=== PATIENT | female | born 1970 | race Caucasian/White ===

== ENCOUNTER 2024-03-28 09:50 | Day surgery (SDC) | payer MEDICARE, SELFPAY ==
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
--- OUTSIDE RECORDS SUMMARY | 2024-03-28 09:57 | XMS_ITS | Encounter Summary ---
Author Name Unknown Organization [place] Address [address] [facility] [place] [address] Care Team Providers Care Slubber Runner Name Role Phone Klaudia Ludwig MD Unavailable [phone] Alex Sneed MD Unavailable [facility] Primary Care Provi kayy Dave Fermin RN Unavailable Keith Bond MD Primary Care Provider [phone] Mague Olsen PA-C Unavailable [phone] Mague Olsen PA-C Unavailable [phone] Encounter Details Date Type Department Care Team (Late st Contact Info) Description 09/07/2017 [facility] [address] [place] [address] Zion Love MD Social History Tobacco Use Types Packs/Day Years Used Date Smoking Tobacco: Never Smokeless Tobacco: Never Alcohol Use Standard Drinks/Week Comments No 0 (1 standard drink = 0.6 oz pur e alcohol) Sex and Gender Information Value Date Recorded Sex Assigned at Not on file Gender Identity Not on file Sexual Orientation Not on file documented as of this encounter Plan of Treatment Not on file documented as of this encounter Visit Diagnoses Not on filedocumented in this encounter Care Teams Slubber Runner Relationship Specialty Start Date End Date [address] [address] PCP - General 05/21/16 09/22/17 Keith Bnod MD [facility] [address] [place] [address] PCP - General Family Practice 09/23/17 Mague Olsen PA-C [facility] [address] [place] [address] PCP - Assigned PCP 06/13/18 01/25/19 Klaudia Ludwig MD [address] [place] [address] Referring Physician Nephrology 06/01/15 Alex Sneed MD [address] [facility] [address] [place] [address] INTERNAL MEDICINE - ENDOCRINOLOGY, DIABETES & METABOLISM 07/25/15 Dave Fermin, RN Nurse Coordinator Nephrology 02/13/17 10/22/17 [address]ague [address]lsen PA-C [facility] [address] [place] [address] Assigned PCP 06/13/18 02/26/19 documented as of this encounter
--- OUTSIDE RECORDS SUMMARY | 2024-03-28 09:57 | XMS_ITS | Encounter Summary ---
Author Name Unknown Organization [place] Address [address] [place] [address] Care Team Providers Care Seafood Fisherman Name Role Phone Klaudia Ludwig MD Unavailable [phone] Alex Sneed MD Unavailable [facility] Primary Care Provi kayy Dave Fermin RN Unavailable Keith Bond MD Primary Care Provider [phone] Mague Olsen PA-C Unavailable [phone] Mague Olsen PA-C Unavailable [phone] Encounter Details Date Type Department Care Team (Late st Contact Info) Description 06/01/2017 [facility] Specialty [facility] 3rd Floor Clinic [address] [place] [address] Gayatri Mondragon Social History Tobacco Use Types Packs/Day Years [...] on filedocumented in this encounter Care Teams Seafood Fisherman Relationship Specialty Start Date End Date [address] [address] PCP - General 05/21/16 09/22/17 Keith Bond MD [facility] [address] [place] [address] PCP - General Family Practice 09/23/17 Mague Olsen PA-C [facility] [address] [place] [address] PCP - Assigned PCP 06/13/18 01/25/19 Klaudia Ludwig MD [address] [place], [place] [address] Referring Physician Nephrology 06/01/15 Alex Sneed MD [address] [facility] [address] [place], [place] [address] INTERNAL MEDICINE - ENDOCRINOLOGY, DIABETES & METABOLISM 07/25/15 Dave Fermin, RN Nurse Coordinator Nephrology 02/13/17 10/22/17 Mague Olsen PA-C [facility] [address] [place] [address] Assigned PCP 06/13/18 02/26/19 documented as of this encounter
--- OUTSIDE RECORDS SUMMARY | 2024-03-28 09:57 | XMS_ITS | Encounter Summary ---
Author Name Unknown Organization [place] Address [address] [facility] [place] [address] Care Team Providers Care Gas Refrigerator Servicer Name Role Phone Klaudia Ludwig MD Unavailable + [phone] Alex Sneed MD Unavailable [facility] Primary Care Provi kayy Dave Fermin RN Unavailable Keith Bond MD Primary Care Provider [phone] Mague Olsen PA-C Unavailable [phone] Mague Olsen PA-C Unavailable [phone] Encounter Details Date Type Department Care Team (Late st Contact Info) Description 08/12/2017 [facility] [address] [address] Klaudia Ludwig MD [address] [place] [address] [address] [place], [place] [id number] Social History Tobacco Use Types Packs/Day Years [...] on filedocumented in this encounter Care Teams Gas Refrigerator Servicer Relationship Specialty Start Date End Date Clinic, [address] [address] PCP - General 05/21/16 09/22/17 Keith Bond MD [facility] [address] [place] [address] PCP - General Family Practice 09/23/17 Mague Olsen PA-C [facility] [address] [place] [address] PCP - Assigned PCP 06/13/18 01/25/19 Klaudia Ludwig MD [address] [facility] [address] [place] [address] Referring Physician Nephrology 06/01/15 Alex Sneed MD [address] [facility] [address] [place] [address] INTERNAL MEDICINE - ENDOCRINOLOGY, DIABETES & METABOLISM 07/25/15 Dave Fermin, RN Nurse Coordinator Nephrology 02/13/17 10/22/17 Mague Olsen PA-C [facility] [address] [place] [address] Assigned PCP 06/13/18 02/26/19 documented as of this encounter
--- OUTSIDE RECORDS SUMMARY | 2024-03-28 09:57 | XMS_ITS | Encounter Summary ---
Author Name Unknown Organization [place] Address [address] [facility] [address] Care Team Providers Care Automotive General Manager Name Role Phone Klaudia Ludwig MD Unavailable + [phone] Alex Sneed MD Unavailable [phone] Keith Bond MD Primary Care Provider [phone] Encounter Details Date Type Department Care Team (Late st Contact Info) Description 09/16/2023 [facility] Advice [facility] Interventional Radiology [address] [place] [address] [place], ADALGISA Social History Tobacco Use Types Packs/Day Years [...] on filedocumented in this encounter Care Teams Automotive General Manager Relationship Specialty Start Date End Date Keith Bond MD [address] [address] PCP - General Family Practice 09/23/17 Klaudia Ludwig MD [address] [facility] [address] [place] [address] Referring Physician Nephrology 06/01/15 Alex Sneed MD [address] [facility] [address] [place] [address] INTERNAL MEDICINE - ENDOCRINOLOGY, DIABETES & METABOLISM 07/25/15 documented as of this encounter
--- OUTSIDE RECORDS SUMMARY | 2024-03-28 09:57 | XMS_ITS | Encounter Summary ---
Author Name Unknown Organization [place] Address [address] [facility] [place] [address] Care Team Providers Care Nursery Technician Name Role Phone Klaudia Ludwig MD Unavailable + [phone] Alex Sneed MD Unavailable [phone] [facility] Primary Care Provi kayy Dave Fermin RN Unavailable Keith Bond MD Primary Care Provider [phone] Mague Olsen PA-C Unavailable [phone] Mague Olsen PA-C Unavailable [phone] Encounter Details Date Type Department Care Team (Late st Contact Info) Description 08/21/2017 [facility] Neph[facility] [address] [address] Monique Agarwal, ADALGISA Social History Tobacco Use Types Packs/Day [...] on filedocumented in this encounter Care Teams Nursery Technician Relationship Specialty Start Date End Date [address] [place] [address] PCP - General 05/21/16 09/22/17 Keith Bond MD [facility] [address] [place] [address] PCP - General Family Practice 09/23/17 Mague Olsen PA-C [facility] [address] [place] [address] PCP - Assigned PCP 06/13/18 01/25/19 Klaudia Ludwig MD [address] [facility] [address] [place] [address] Referring Physician Nephrology 06/01/15 Alex Sneed MD [address] [facility] [address] [place], [place] [address] INTERNAL MEDICINE - ENDOCRINOLOGY, DIABETES & METABOLISM 07/25/15 Dave Fermin, RN Nurse Coordinator Nephrology 02/13/17 10/22/17 Mague Olsen PA-C [facility] [address] [place] [address] Assigned PCP 06/13/18 02/26/19 documented as of this encounter
--- OUTSIDE RECORDS SUMMARY | 2024-03-28 09:57 | XMS_ITS | Encounter Summary ---
Author Name Unknown Organization [place] Address [address] [place] [address] Care Team Providers Care Leather Goods Assembler Name Role Phone Klaudia Ludwig MD Unavailable [phone] Alex Sneed MD Unavailable [phone] Keith Bond MD Primary Care Provider [phone] Encounter Details Date Type Department Care Team (Late st Contact Info) Description 01/23/2023 [facility] Interventional Radiology [address] [place] [address] Maya Hunt RN Social History Tobacco Use Types Packs/Day Years Used Date Smoking Tobacco: Never Smokeless Tobacco: Never Alcohol Use Standard Drinks/Week Comments No 0 (1 standard drink = 0.6 oz pur e alcohol) PHQ-2 Answer Date Recorded PHQ-2 Score 0 11/30/2018 Sex and Gender Information Value Date Recorded Sex Assigned at Not on file Gender Identity Not on file Sexual Orientation Not on file documented as of this encounter Plan of Treatment Not on file documented as of this encounter Visit Diagnoses Not on filedocumented in this encounter Care Teams Leather Goods Assembler Relationship Specialty Start Date End Date Keith Bond MD [facility] [address] [place] [id number] PCP - General Family Practice 09/23/17 Klaudia Ludwig MD [address] [facility] [address] [place] [address] Referring Physician Nephrology 06/01/15 Alex Sneed MD [address] [place] [address] [address] [place] [address] INTERNAL MEDICINE - ENDOCRINOLOGY, DIABETES & METABOLISM 07/25/15 documented as of this encounter
--- OUTSIDE RECORDS SUMMARY | 2024-03-28 09:57 | XMS_ITS | Encounter Summary ---
Author Name Unknown Organization [place] Address [address] [facility] [place] [address] Care Team Providers Care Terminal Block Assembler Name Role Phone Klaudia Ludwig MD Unavailable [phone] Alex Sneed MD Unavailable [phone] Keith Bond MD Primary Care Provider [phone] Reason for Visit * Reason Onset Date Comments Outreach 04/27/2019 VIP Att 1 Encounter Details Date Type Department Care Team (Late st Contact Info) Description 04/27/2019 Telephone [place] Centralized Scheduling [address] [place] [address] Keith Bond MD [address] [address] Outreach (VIP Att 1) Social History Tobacco Use Types Packs/Day Years [...] on file documented as of this encounter Miscellaneous Notes * Telephone Encounter - Rob Nowak U - 04/27/2019 11:56 AM CDT 04/27/2019 Attempt 1 Contacted patient in regards to scheduling VIP mammogram screening at on 05/04/19 Message on voicemail Patient is also due for - Preventive Health Screening Colonoscopy Comments: Outreach Fabrication Lead Chelsea Parmar documented in this encounter Plan of Treatment Not on file documented as of this encounter Visit Diagnoses Not on filedocumented in this encounter Care Teams Terminal Block Assembler Relationship Specialty Start Date End Date Keith Bond MD [place] [address] [place] [address] PCP - General Family Practice 09/23/17 Klaudia Ludwig MD [address] [facility] [address] [place] [address] Referring Physician Nephrology 06/01/15 Alex Sneed MD [address] [facility] [address] [place] [address] INTERNAL MEDICINE - ENDOCRINOLOGY, DIABETES & METABOLISM 07/25/15 documented as of this encounter
--- OUTSIDE RECORDS SUMMARY | 2024-03-28 09:57 | XMS_ITS | Encounter Summary ---
Author Name Unknown Organization [facility] Address [address] [place] [address] Care Team Providers Care Hat Ironer Name Role Phone Klaudia Ludwig MD Unavailable [phone] Alex Oliveros MD Unavailable [facility] Primary Care Provi kayy Dave Fermin RN Unavailable Keith Bond MD Primary Care Provider [phone] Mague Olsen PA-C Unavailable [phone] Mague Olsen PA-C Unavailable [phone] Reason for Referral * CV Cardio consult - Closed Specialty Diagnoses / Procedures Referred By Contac t Referred To Contact Diagnoses Fibrillary glomerulonephritis Cardiovascular disease Chronic renal failure, stage 5 (H) Organ transplant candidate Essential hypertension Hyperlipidemia [facility] [address] [place] [address] Referral ID Status Reason Start Date Expiration Date Visits Re quested Visits Authorized [id number] Closed 03/23/2017 03/23/2018 1 1 Comments [facility] Cardiology: Diabetic or cardiac history pre k eval and cardiac clearance * Nutrition - Closed Specialty Diagnoses / Procedures Referred By Contac t Referred To Contact Diagnoses Fibrillary glomerulonephritis Cardiovascular disease Chronic renal failure, stage 5 (H) Organ transplant candidate Essential hypertension Hyperlipidemia [facility] [address] [place] [address] Referral ID Status Reason Start Date Expiration Date Visits Re quested Visits Authorized [id number] Closed 03/23/2017 03/23/2018 1 1 Question Answer Nutritional instruct OTHER (ENTER COMMENTS) - transplant eval Comments (Schedule through [facility]. Contact Miya Tucker [phone] if issues scheduling) * Oncology Social Work - Closed Specialty Diagnoses / Procedures Referred By Ronda jeffrey Referred To Contact Diagnoses Fibrillary glomerulonephritis Cardiovascular disease Chronic renal failure, stage 5 (H) Organ transplant candidate Essential hypertension Hyperlipidemia Sot [address] [place] [phone] Referral ID Status Reason Start Date Expiration Date Visits Re quested Visits Authorized [id number] Closed 03/23/2017 03/23/2018 1 1 * Consultation - Closed Specialty Diagnoses / Procedures Referred By Contsienna jeffrey Referred To Contact Diagnoses Fibrillary glomerulonephritis Cardiovascular disease Chronic renal failure, stage 5 (H) Organ transplant candidate Essential hypertension Hyperlipidemia Sot [address] [place] [phone] Referral ID Status Reason Start Date Expiration Date Visits Re quested Visits Authorized [id number] Closed 03/23/2017 03/23/2018 1 1 Comments Pre k eval * Consultation - Closed Specialty Diagnoses / Procedures Referred By Contsienna t Referred To Contact Diagnoses Fibrillary glomerulonephritis Cardiovascular disease Chronic renal failure, stage 5 (H) Organ transplant candidate Essential hypertension Hyperlipidemia [facility] [address] [place] [phone] Referral ID Status Reason Start Date Expiration Date Visits Re quested Visits Authorized [id number] Closed 03/23/2017 03/23/2018 1 1 Comments H & P: schedule with Endy/ Spong * Consultation - Closed Specialty Diagnoses / Procedures Referred By Ronda jeffrey Referred To Contact Diagnoses Fibrillary glomerulonephritis Cardiovascular disease Chronic renal failure, stage 5 (H) Organ transplant candidate Essential hypertension Hyperlipidemia [address] [phone] Referral ID Status Reason Start Date Expiration Date Visits Re quested Visits Authorized [id number] Closed 03/23/2017 03/23/2018 1 1 Comments Specify: Kailey * Patient Education - Closed Specialty Diagnoses / Procedures Referred By Ronda jeffrey Referred To Contact Diagnoses Fibrillary glomerulonephritis Cardiovascular disease Chronic renal failure, stage 5 (H) Organ transplant candidate Essential hypertension Hyperlipidemia [address] [phone] Referral ID Status Reason Start Date Expiration Date Visits Re quested Visits Authorized [id number] Closed 03/23/2017 03/23/2018 1 1 Comments Pre-transplant class at the [facility], Education Room. SCHEDULE PRIOR TO TRANSPLANT SURGEON APPT. Reason for Visit * Reason Onset Date Comments Transplant 03/04/2017 kidney intake Transplant 03/25/2017 called pt Transplant 04/01/2017 eval date Encounter Details Date Type Department Care Team (Late st Contact Info) Description 03/04/[address] [facility] Transplant Clinic [address] [place] [phone] Kailey Espino RN Transplant (kidney intake); Transplant (called pt ); Transplant (eval date) Social History Tobacco Use Types Packs/Day Years [...] encounter Miscellaneous Notes * Telephone Encounter - Mariluz Esteban - 04/01/2017 12:15 PM CDT Pt confirmed pre kidney eval on 05/06 with Spong and [facility]. * Telephone Encounter - Mariluz Esteban - 04/01/2017 10:57 AM CDT Spoke to Sissy and she stated that she will talk to her sisters about the dates and she will get tome today. Waiting for a call. Left my info. * Telephone Encounter - Mariluz Esteban - 03/25/2017 2:18 PM CDT Called pt to schedule pre kidney eval. LVM to cb, * Telephone Encounter - Jael Sheffield RN - 03/23/2017 1:30 PM CDT Reviewed medical records to date in [facility]. CKD stage 5 with GFR of 9. 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 Past surgeries include cholecystectomy in 1999, [id number] at , left ear tympanotomy and right ear ossicular reconstruction, septoplasty, and bunionectomy. Had BMB done at [facility] and is negative (media tab 08/17/2013). Has never received blood. Non smoker. BMI 38.7. She originally started a pre kidney evaluation here in May of 2013. Her BMI at that time was 52.5. She has [facility] dilig[facility] to bring her BMI down t o 38.7. She does have potential living donors. All records acceptable to proceed with pre kidney evaluation. Called Sissy and left message on her voice mail cell phone asking for return call. Home phone is disconnected. Provided my contact information. Smart set orders placed in [facility] and routed to scheduling. * Telephone Encounter - Mary Fountain - 03/04/2017 9:13 AM CDT Intake Progress Note Organ: kidney Referral Came Via (Fax from/phone call from): Patient Referring Physician: Klaudia Ludwig Assigned Coordinator: Kailey Espino Reported Diagnosis that caused the kidney failure ( not CKD) High level of protein in bloodstream Best time patient can be reached: mornings Type of packet sent: kidney Records: [employer] requested from: [facility] Insurance information: Current in [facility] History of diabetes: No Do you have an admissions representative?: yes Name and Location: [facility] On insulin or oral medication: No History of a kidney biopsy: Yes If Yes,when and where: and [facility] a second opinion Past Medical and Surgical History (updated in [facility] medical / surgical): History of cancer personally: No, History of cardiac events: No History abdominal surgeries: Yes What type?gallbladder,hestrectomoy Where and when? Gallbladder 1999 & hesterectomy 2010 [facility] History of previous transplant: No Listed or in eval at another transplant center? No History of hospitalization in last 12 months: No History of blood transfusion: No Smoking history: No On dialysis: No If NYOD, estimated GFR: 9 Height: 5'6 Weight: 240 BMI: 38.7 Health Maintenance: PAP: 3 years ago Mammo: 09/07 Colon: never Dental: up todate Vaccines up to date Special Needs (ie--wheelchair, assistance, guardian, interpretor): no Informed patient on the need to arrange age appropriate cancer screening, vaccines up to date and dental clearance Reviewed evaluation process and reminded patient to complete questionnaire, complete medical records release, and review packet prior to evaluation visit Informed patient that coordinator will review their chart and insurance coverage and if no concernsthey will receive a call from a pulley man to schedule evaluation documented in this encounter Plan of Treatment Pending Results Name Type Priority Associated Diagnoses Date /Time 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 [[id number]] Lab Routine Fibrillary glomerulonephritis Cardiovascular disease Chronic renal failure, stage 5 (H) Organ transplant candidate Essential hypertension Hyperlipidemia 05/06/2017 7:09 AM CDT Factor 5 leiden mutation analysis [[id number]] Lab Routine Fibrillary glomerulonephritis Cardiovascular disease Chronic renal failure, stage 5 (H) Organ transplant candidate Essential hypertension Hyperlipidemia 05/06/2017 7:09 AM CDT Scheduled Referrals Name Type Priority Associated Diagnoses Orde r Schedule Pre-Transplant Class Referral Routine Fibrillary glomerulonephritis Cardiovascular disease Chronic renal failure, stage 5 (H) Organ transplant candidate Essential hypertension Hyperlipidemia Ordered: 03/23/2017 WOOD CRAFTER REFERRAL Referral Routine Fibrillary glomerulonephritis Cardiovascular disease Chronic renal failure, stage 5 (H) Organ transplant candidate Essential hypertension Hyperlipidemia Ordered: 03/23/2017 NEPHROLOGY ADULT REFERRAL Referral Routine Fibrillary glomerulonephritis Cardiovascular disease Chronic renal failure, stage 5 (H) Organ transplant candidate Essential hypertension Hyperlipidemia Ordered: 03/23/2017 GENERAL SURG ADULT REFERRAL Referral Routine Fibrillary glomerulonephritis Cardiovascular disease Chronic renal failure, stage 5 (H) Organ transplant candidate Essential hypertension Hyperlipidemia Ordered: 03/23/2017 BEATER LEAD REFERRAL Referral Routine Fibrillary glomerulonephritis Cardiovascular disease Chronic renal failure, stage 5 (H) Organ transplant candidate Essential hypertension Hyperlipidemia Ordered: 03/23/2017 NUTRITION REFERRAL Referral Routine Fibrillary glomerulonephritis Cardiovascular disease Chronic renal failure, stage 5 (H) Organ transplant candidate Essential hypertension Hyperlipidemia Ordered: 03/23/2017 CARDIOLOGY EVAL ADULT REFERRAL Referral Routine Fibrillary glomerulonephritis Cardiovascular disease Chronic renal failure, stage 5 (H) Organ transplant candidate Essential hypertension Hyperlipidemia Ordered: 03/23/2017 documented as of this encounter Results * Echocardiogram (05/06/2017 3:10 PM CDT) Anatomical Region Laterality Modality Echocardiography 05/06/2017 2:18 PM CDT Narrative 05/06/2017 4:19 PM CDT [id number]^JEFFREY^LIVIA^SHARITA [facility]-[address]rd Floor [address] [place] [id number] Name: SISSY NORIEGA : 1970 Study Date: 05/06/2017 02:18 PM Age: 47 yrs Gender: Female Patient Location: [facility] Reason For Study: Kidney TX workup History: Kidney TX workup Ordering Physician: LIVIA MURPHY Referring Physician: LIVIA MURPHY Performed By: Kirstin Riggs RDCS BSA: 2.2 m2 Height: 64 in Weight: 260 lb BP: 124/84 mmHg __ Procedure Echocardiogram with two-dimensional, color and spectral Doppler performed. Limited Echocardiogram with portions of two-dimensional, color and spectral Doppler performed. __ Interpretation Summary Left ventricular size is normal. Global and regional left ventricular function is normal with an EF of 60-65%. The LV filling pattern is c/w grade II diastolic dysfunction and increased left atrial pressure. The right ventricle is normal size. Global right ventricular function is normal. The inferior vena cava is normal in size with preserved respiratory variability. Estimated mean right atrial pressure is <3 mmHg. Trivial pericardial effusion is present. Previous study not available for comparison. __ Left Ventricle Left ventricular size is normal. Left ventricular wall thickness is normal. Global and regional left ventricular function is normal with an EF of 60-65%. The LV filling pattern is c/w grade II diastolic dysfunction and increased left atrial pressure. No regional wall motion abnormalities are seen. Right Ventricle The right ventricle is normal size. Global right ventricular function is normal. Atria Moderate biatrial enlargement is present. The atrial septum is intact as assessed by color Doppler . Mitral Valve The mitral valve is normal. Mild mitral insufficiency is present. Aortic Valve Aortic valve is normal in structure and function. Tricuspid Valve The tricuspid valve is normal. Trace to mild tricuspid insufficiency is present. Pulmonary artery systolic pressure is normal. The right ventricular systolic pressure is approximated at 24.9 mmHg plus the right atrial pressure. Pulmonic Valve The pulmonic valve is normal. Vessels The aorta root is normal. The inferior vena cava was normal in size with preserved respiratory variability. Estimated mean right atrial pressure is <3 mmHg. Pericardium Trivial pericardial effusion is present. Compared to Previous Study Previous study not available for comparison. __ MMode/2D Measurements & Calculations IVSd: 0.97 cm LVIDd: 4.9 cm LVIDs: 3.0 cm LVPWd: 0.88 cm FS: 37.8 % EDV(Teich): 112.5 ml ESV(Teich): 36.3 ml LV mass(C)d: 157.7 grams LV mass(C)dI: 72.1 grams/m2 Ao root diam: 4.1 cm LA dimension: 4.2 cm asc Aorta Diam: 3.2 cm LA/Ao: 1.0 LVOT diam: 2.1 cm LVOT area: 3.4 cm2 LA Volume (BP): 101.0 ml LA Volume Index (BP): 46.1 ml/m2 Doppler Measurements & Calculations MV E max deloris: 129.6 cm/sec MV A max deloris: 114.3 cm/sec MV E/A: 1.1 MV dec time: 0.22 sec Ao V2 max: 168.3 cm/sec Ao max P.0 mmHg Ao V2 mean: 122.1 cm/sec Ao mean P.8 mmHg Ao V2 VTI: 37.4 cm JOSE(I,D): 3.1 cm2 JOSE(V,D): 2.8 cm2 LV V1 max P.8 mmHg LV V1 max: 139.6 cm/sec LV V1 VTI: 34.3 cm SV(LVOT): 116.4 ml SI(LVOT): 53.2 ml/m2 PA acc time: 0.12 sec TR max deloris: 249.3 cm/sec TR max P.9 mmHg JOSE Index (cm2/m2): 1.4 Lateral E/e': 14.5 Medial E/e': 15.5 __ Report approved by: Renee Arreguin 05/06/2017 04:19 PM Procedure Note Karl Stuart MD - 05/06/2017 [id number]^JEFFREY^LIVIA^SHARITA [facility]-3rd Floor [address] [place] [address] Name: SISSY NORIEGA : 1970 Study Date: 05/06/2017 02:18 PM Age: 47 yrs Gender: Female Patient Location: [facility] Reason For Study: Kidney TX workup History: Kidney TX workup Ordering Physician: LIVIA MURPHY Referring Physician: LIVIA MURPHY Performed By: Kirstin Riggs RDCS BSA: 2.2 m2 Height: 64 in Weight: 260 lb BP: 124/84 mmHg __ Procedure Echocardiogram with two-dimensional, color and spectral Dopplerperformed. Limited Echocardiogram with portions of two-dimensional, color andspectral Doppler performed. __ Interpretation Summary Left ventricular size is normal. Global and regional left ventricularfunction is normal with an EF of 60-65%. The LV filling pattern is c/w grade II diastolic dysfunction andincreased left atrial pressure. The right ventricle is normal size. Global right ventricular function is normal. The inferior vena cava is normal in size with preserved respiratory variability. Estimated mean right atrial pressure is <3 mmHg. Trivial pericardial effusion is present. Previous study not available for comparison. __ Left Ventricle Left ventricular size is normal. Left ventricular wall thickness isnormal. Global and regional left ventricular function is normal with an EF of60-65%. The LV filling pattern is c/w grade II diastolic dysfunction andincreased left atrial pressure. No regional wall motion abnormalities are seen. Right Ventricle The right ventricle is normal size. Global right ventricular function is normal. Atria Moderate biatrial enlargement is present. The atrial septum is intact as assessed by color Doppler . Mitral Valve The mitral valve is normal. Mild mitral insufficiency is present. Aortic Valve Aortic valve is normal in structure and function. Tricuspid Valve The tricuspid valve is normal. Trace to mild tricuspid insufficiency is present. Pulmonary artery systolic pressure is normal. The rightventricular systolic pressure is approximated at 24.9 mmHg plus the right atrialpressure. Pulmonic Valve The pulmonic valve is normal. Vessels The aorta root is normal. The inferior vena cava was normal in size with preserved respiratory variability. Estimated mean right atrial pressure is<3 mmHg. Pericardium Trivial pericardial effusion is present. Compared to Previous Study Previous study not available for comparison. __ MMode/2D Measurements & Calculations IVSd: 0.97 cm LVIDd: 4.9 cm LVIDs: 3.0 cm LVPWd: 0.88 cm FS: 37.8 % EDV(Teich): 112.5 ml ESV(Teich): 36.3 ml LV mass(C)d: 157.7 grams LV mass(C)dI: 72.1 grams/m2 Ao root diam: 4.1 cm LA dimension: 4.2 cm asc Aorta Diam: 3.2 cm LA/Ao: 1.0 LVOT diam: 2.1 cm LVOT area: 3.4 cm2 LA Volume (BP): 101.0 ml LA Volume Index (BP): 46.1 ml/m2 Doppler Measurements & Calculations MV E max deloris: 129.6 cm/sec MV A max deloris: 114.3 cm/sec MV E/A: 1.1 MV dec time: 0.22 sec Ao V2 max: 168.3 cm/sec Ao max P.0 mmHg Ao V2 mean: 122.1 cm/sec Ao mean P.8 mmHg Ao V2 VTI: 37.4 cm JOSE(I,D): 3.1 cm2 JOSE(V,D): 2.8 cm2 LV V1 max P.8 mmHg LV V1 max: 139.6 cm/sec LV V1 VTI: 34.3 cm SV(LVOT): 116.4 ml SI(LVOT): 53.2 ml/m2 PA acc time: 0.12 sec TR max deloris: 249.3 cm/sec TR max P.9 mmHg JOSE Index (cm2/m2): 1.4 Lateral E/e': 14.5 Medial E/e': 15.5 __ Report approved by: Renee Arreguin 05/06/2017 04:19 PM Livia Hector PA-C CV ECHO ORDERABLE S * ABO type [[id number]] (05/06/2017 1:58 PM CDT) ABO A [facility] RH(D) Pos [facility] Specimen Expires 05/09/2017 [facility] Blood specimen (specimen) 05/06/2017 1:58 PM CDT 05/06/2017 2:03 PM CDT Livia Sheriff Krunal PRESLEY-C LAB - BLOOD BANK TEST ORDER Performing Organization Address [facility]/ZIP Co de Phone Number [facility] [address] [place] [address] * Antibody titer red cell [[id number]] (05/06/2017 1:58 PM CDT) Antibody Titer Duplicate request 05/07/17 0900 [facility] Blood specimen (specimen) 05/06/2017 1:58 PM CDT 05/06/2017 2:04 PM CDT Livia Hector PA-C LAB - BLOOD BANK TEST ORDER Performing Organization Address [facility] Co de Phone Number [address] [address] * EKG 12-lead, tracing only [EKG1] (05/06/2017 1:33 PM CDT) Interpretation ECG Click View Image link to view waveform and result RADIOLOGY RESULTS 05/06/2017 1:33 PM CDT Livia Burrisgiles PA-C ECG ORDERABLES Performing Organization Address City/[facility]/ZIP Co de Phone Number RADIOLOGY RESULTS * XR Chest 2 Views [[id number]] (05/06/2017 1:29 PM CDT) Anatomical Region Laterality Modality Chest Computed Radiogr aphy Impressions 05/06/2017 4:20 PM CDT IMPRESSION: No acute finding in the chest. I have personally reviewed the examination and initial interpretation and I agree with the findings. JENNY ANDERSON MD Narrative 05/06/2017 4:20 PM CDT EXAM: XR CHEST 2 VW ??05/06/2017 1:29 PM HISTORY: ??Unspecified nephritic syndrome with unspecified morphologic changes, Atherosclerotic heart disease of [place] coronary artery without angina pectoris, Chronic kidney disease, stage 5, Awaiting organ transplant status, Essential (primary) hypertension, Hyperlipidemia, unspecified ?? COMPARISON: CT cap 11/20/2016. FINDINGS: PA and lateral views of chest. Cardiomediastinal silhouette is within normal limits. Distinct pulmonary vasculature. No pneumothorax or pleural effusion. No focal airspace opacity. Surgical clips over right upper quadrant. 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 FINDINGS: PA and lateral views of chest. Cardiomediastinal silhouette is within normal limits. Distinct pulmonary vasculature. No pneumothorax or pleural effusion. No focal airspace opacity. Surgical clips over right upper quadrant. IMPRESSION: No acute finding in the chest. I have personally reviewed the examination and initial interpretation and I agree with the findings. JENNY ANDERSON MD Livia Hector PA-C IMG DIAGNOSTIC IM AGING ORDERABLES * (ABNORMAL) Routine UA with microscopic [[id number]] (05/06/2017 7:15 AM CDT) Color Urine Yellow [facility] Appearance Urine Slightly Cloudy [facility] Glucose Urine 50(A) NEG mg/dL [facility] Bilirubin Urine Negative NEG [facility] Ketones Urine Negative NEG mg/dL [facility] Specific [place] Urine 1.011 1.003 - 1.035 [facility] Blood Urine Negative NEG [facility] pH Urine 6.0 5.0 - 7.0 pH [facility] Protein Albumin Urine >499(A) NEG mg/dL [facility] Urobilinogen mg/dL 0.0 0.0 - 2.0 mg/dL [facility] Nitrite Urine Negative [facility] Leukocyte Esterase Urine Trace(A) NEG [facility] Source Midstream Urine [facility] WBC Urine 12(H) 0 - 2 /HPF [facility] RBC Urine 2 0 - 2 /HPF [facility] Bacteria Urine Few(A) NEG /HPF [facility] Squamous Epithelial /HPF Urine 2(H) 0 - 1 /HPF [facility] Mucous Urine Present(A) NEG /LPF [facility] Urine specimen (specimen) 05/06/2017 7:15 AM CDT 05/06/2017 7:20 AM CDT Livia Hector PA-C LAB - URINE ORDER [place] [address] [phone] * M Tuberculosis by Quantiferon [[id number]] (05/06/2017 7:10 AM CDT) M Tuberculosis Result Negative NEG [facility] M Tuberculosis Antigen Value 0.08 IU/mL [facility] Comment: This is a qualitative test. ??The TB antigen IU/mL value is required for documentation on certain government reporting forms but this value should not be used to monitor disease progression or response to therapy. Diagnosing or excluding tuberculosis disease, and assessing the probability of LTBI, require a combination of epidemiological, historical, medical and diagnostic findings that should be taken into account when interpreting QuantiFERON TB results. Blood specimen (specimen) 05/06/2017 7:10 AM CDT 05/06/2017 7:12 AM CDT Livia PRESLEY-Malena LAB - BLOOD ORDER [place] [facility] [address] [place] [address] * ABO Subtyping [[id number]] (05/06/2017 7:10 AM CDT) Antigen Type A1 Positive [facility] Blood specimen (specimen) 05/06/2017 7:10 AM CDT 05/06/2017 7:12 AM CDT Livia PRESLEY-C LAB - BLOOD BANK TEST ORDER Performing Organization Address City/[facility]/ZIP Co de Phone Number [facility] [address] [place] [address] * Antibody titer red cell [[id number]] (05/06/2017 7:10 AM CDT) Antibody Titer Anti B: IgG >256 [facility] Blood specimen (specimen) 05/06/2017 7:10 AM CDT 05/06/2017 7:12 AM CDT Livia PRESLEY-C LAB - BLOOD BANK TEST ORDER Performing Organization Address City/[facility]/ZIP Co de Phone Number [address] [address] * ABO/Rh type and screen [[id number]] (05/06/2017 7:10 AM CDT) ABO A [facility] RH(D) Pos [facility] Antibody Screen Neg [facility] Test Valid Only At [facility] Specimen Expires 05/09/2017 [facility] Blood specimen (specimen) 05/06/2017 7:10 AM CDT 05/06/2017 7:13 AM CDT Livia Hector PA-C LAB - BLOOD BANK TEST ORDER [facility] [address] [place] [address] * (ABNORMAL) Phosphorus (05/06/2017 7:09 AM CDT) Phosphorus 4.9(H) 2.5 - 4.5 mg/dL [facility] Blood specimen (specimen) 05/06/2017 7:09 AM CDT 05/06/2017 7:11 AM CDT Livia Hector PA-C LAB - BLOOD ORDER [place] Performing Organization Address City/[facility]/ZIP Co de Phone Number [address] [address] [phone] * (ABNORMAL) Varicella Zoster Virus Antibody IgG [[id number]] (05/06/2017 7:09 AM CDT) Varicella Zoster Virus Antibody IgG 4.5(H) 0.0 - 0.8 AI [facility] Comment: Positive, suggests prev. exposure and probable immunity Antibody index (AI) values reflect qualitative changes in antibody concentration that cannot be directly associated with clinical condition or disease state. Blood specimen (specimen) 05/06/2017 7:09 AM CDT 05/06/2017 7:11 AM CDT Livia Hector PA-C LAB - BLOOD ORDER [place] [facility] [address] [place], [place] [address] [place] [address] * Anti Treponema [[id number]] (05/06/2017 7:09 AM CDT) Treponema pallidum Antibody Negative NEG [facility] Blood specimen (specimen) 05/06/2017 7:09 AM CDT 05/06/2017 7:11 AM CDT Livia Hector SAKINAMoodyMalena LAB - BLOOD ORDER [place] [facility] [address] [place] [address] * HIV Antigen Antibody Combo Pretransplant (05/06/2017 7:09 AM CDT) HIV Antigen Antibody Combo Pretransplant Nonreactive HIV-1 p24 Ag & HIV-1/HIV-2 Ab Not Detected NR [facility] Blood specimen (specimen) 05/06/2017 7:09 AM CDT 05/06/2017 7:11 AM CDT Livia Hector SAKINAMoodyMalena LAB - BLOOD ORDER [place] [facility] [address] * Hepatitis C antibody [[id number]] (05/06/2017 7:09 AM CDT) Hepatitis C Antibody Nonreactive Assay performance characteristics have not been established for newborns, infants, and children NR [facility] Blood specimen (specimen) 05/06/2017 7:09 AM CDT 05/06/2017 7:11 AM CDT Livia Hector SAKINAMoodyMalena LAB - BLOOD ORDER [place] [facility] [address] * Hepatitis B surface antigen [[id number]] (05/06/2017 7:09 AM CDT) Hep B Surface Agn Nonreactive NR [facility] Blood specimen (specimen) 05/06/2017 7:09 AM CDT 05/06/2017 7:11 AM CDT Livia Burrisgiles PRESLEYMoodyMalena LAB - BLOOD ORDER [place] [facility] [address] * Hepatitis B Surface Antibody [[id number]] (05/06/2017 7:09 AM CDT) Hepatitis B Surface Antibody 0.34 <8.00 m[IU]/mL [facility] Comment:Nonreactive, No anti body detected when the value is less than 8.00 m[IU]/mL. Blood specimen (specimen) 05/06/2017 7:09 AM CDT 05/06/2017 7:11 AM CDT Liviaian Sheriff Krunal PRESLEY-Malena LAB - BLOOD ORDER [place] Performing Organization Address City/[facility]/ZIP Co de Phone Number [address] * Hepatitis B core antibody [[id number]] (05/06/2017 7:09 AM CDT) Hepatitis B Core Janey Nonreactive NR [facility] Blood specimen (specimen) 05/06/2017 7:09 AM CDT 05/06/2017 7:11 AM CDT Livia Burrisgiles PRESLEY-C LAB - BLOOD ORDER [place] Performing Organization Address City/[facility]/ZIP Co de Phone Number [address] * EBV Capsid Antibody IgG [[id number]] (05/06/2017 7:09 AM CDT) EBV Capsid Antibody IgG <0.2 No detectable antibody. Antibody index (AI) values reflect qualitative changes in antibody concentration that cannot be directly associated with clinical condition or disease state. 0.0 - 0.8 AI [facility] Blood specimen (specimen) 05/06/2017 7:09 AM CDT 05/06/2017 7:11 AM CDT Liviaian Burrisgiles PRESLEY-Malena LAB - BLOOD ORDER [place] [facility] [address] * CMV Antibody IgG [[id number]] (05/06/2017 7:09 AM CDT) Pathologist [facility] CMV Antibody IgG 0.2 0.0 - 0.8 AI [facility] Comment: Negative Antibody index (AI) values reflect qualitative changes in antibody concentration that cannot be directly associated with clinical condition or disease state. Blood specimen (specimen) 05/06/2017 7:09 AM CDT 05/06/2017 7:11 AM CDT Livia Sharita Hector PA-C LAB - BLOOD ORDER [place] Performing Organization Address City/[facility]/ZIP Co de Phone Number [address] * PRA Single Antigen IgG Antibody (05/06/2017 7:09 AM CDT) Pathologist [facility] PRA Single Antigen IgG Antibody Specimen received - Immunology report to follow upon completion. [facility] Blood specimen (specimen) 05/06/2017 7:09 AM CDT 05/06/2017 7:11 AM CDT Livia Sharitacindy Hector PA-C LAB - IMMUNOLOGY ORDERABLES Performing Organization Address [facility]/ZIP Co de Phone Number [address] [address] * HLA Typing Complete SOT Recipient (05/06/2017 7:09 AM CDT) Pathologist [facility] HLA Typing Complete SOT Recipient Specimen received - Immunology report to follow upon completion. [facility] Blood specimen (specimen) 05/06/2017 7:09 AM CDT 05/06/2017 7:11 AM CDT Liviaian Hector PA-C LAB - IMMUNOLOGY ORDERABLES Performing Organization Address City/[facility]/[place] [address] * (ABNORMAL) CBC with platelets differential [[id number]] (05/06/2017 7:09 AM CDT) WBC 6.3 4.0 - 11.0 10e9/L [facility] RBC Count 3.04(L) 3.8 - 5.2 10e12/L [facility] Hemoglobin 8.6(L) 11.7 - 15.7 g/dL [facility] Hematocrit 28.0(L) 35.0 - 47.0 % [facility] MCV 92 78 - 100 fl [facility] MCH 28.3 26.5 - 33.0 pg [facility] MCHC 30.7(L) 31.5 - 36.5 g/dL [facility] RDW 13.7 10.0 - 15.0 % [facility] Platelet Count 230 150 - 450 10e9/L [facility] Diff Method Automated Method [facility] % Neutrophils 74.9 % [facility] % Lymphocytes 10.6 % [facility] % Monocytes 6.7 % [facility] % Eosinophils 7.0 % [facility] % Basophils 0.3 % [facility] % Immature Granulocytes 0.5 % [facility] Nucleated RBCs 0 0 /100 [facility] Absolute Neutrophil 4.7 1.6 - 8.3 10e9/L [facility] Absolute Lymphocytes 0.7(L) 0.8 - 5.3 10e9/L [facility] Absolute Monocytes 0.4 0.0 - 1.3 10e9/L [facility] Absolute Eosinophils 0.4 0.0 - 0.7 10e9/L [facility] Absolute Basophils 0.0 0.0 - 0.2 10e9/L [facility] Abs Immature Granulocytes 0.0 0 - 0.4 10e9/L [facility] Absolute Nucleated RBC 0.0 [facility] Blood specimen (specimen) 05/06/2017 7:09 AM CDT 05/06/2017 7:11 AM CDT Livia Hector PA-C LAB - BLOOD ORDER [place] [address] [phone] * (ABNORMAL) Lupus panel [[id number]] (05/06/2017 7:09 AM CDT) Lupus Result Positive (Note) COMMENTS: The INR is normal. APTT ratio is elevated. Platelet Neutralization is positive. DRVVT Screen ratio is normal. Thrombin time is normal. POSITIVE TEST; THIS PATIENT HAS A ??LUPUS ANTICOAGULANT. Recommend repeat testing in 12 weeks to determine if the Lupus Anticoagulant is persistent or transient, since a transient one does not confer an increased thrombotic risk. If the patient is on an anticoagulant, recommend repeat testing without anticoagulation interference to rule out a false positive lupus anticoagulant. Patients with a lupus anticoagulant on warfarin therapy should be monitored with a factor 2 (factor II) level or chromogenic factor 10 (factor X) assay. Clinical conditions resulting in a high C-reative protein (CRP) level may result in a positive Lupus Anticoagulant test. ??Clinical correlation is recommended. Mague Waters M.D. ??[phone] 05/07/2017 APTT: ?Ratio Patient ??= 1.70 1:2 Mix ??= N/A Reference: Negative: Less than or equal to 1.16 Positive: Greater than or equal to 1.17 Platelet Neutralization (seconds): PTT Buffer-PTT Platelet Lysate = 9 Reference: Negative: Less than or equal to 0 Positive: Greater than or equal to 1 [facility] TEST: Screen Ratio = 1.03 ??Normal is less than 1.21 (A) NEG [facility] Blood specimen (specimen) 05/06/2017 7:09 AM CDT 05/06/2017 7:11 AM CDT Livia PRESLEY-C LAB - BLOOD ORDER [place] [address] [address] * Thrombin time [[id number]] (05/06/2017 7:09 AM CDT) Thrombin Time 16.1 13.0 - 19.0 sec [facility] Blood specimen (specimen) 05/06/2017 7:09 AM CDT 05/06/2017 7:11 AM CDT Livia PRESLEY-C LAB - BLOOD ORDER [place] Performing Organization Address City/[facility] Co de Phone Number [address] [address] * (ABNORMAL) Partial thromboplastin time [[id number]] (05/06/2017 7:09 AM CDT) PTT 52(H) 22 - 37 sec [facility] Blood specimen (specimen) 05/06/2017 7:09 AM CDT 05/06/2017 7:11 AM CDT Livia PRESLEY-C LAB - BLOOD ORDER [place] Performing Organization Address City/[facility] Co de Phone Number [address] [phone] * INR [[id number]] (05/06/2017 7:09 AM CDT) INR 1.14 0.86 - 1.14 [facility] Blood specimen (specimen) 05/06/2017 7:09 AM CDT 05/06/2017 7:11 AM CDT Livia Hector PA-C LAB - BLOOD ORDER [place] Performing Organization Address City/[facility]/[place] [address], [place] [phone] * Cardiolipin Janey IgG and IgM [[id number]] (05/06/2017 7:09 AM CDT) Pathologist [facility] Cardiolipin Antibody IgG <1.6 Negative 0.0 - 19.9 GPL-U/mL [facility] Cardiolipin Antibody IgM 1.2 0.0 - 19.9 MPL-U/mL [facility] Comment:Negative Blood specimen (specimen) 05/06/2017 7:09 AM CDT 05/06/2017 7:11 AM CDT Livia Hector PA-C LAB - BLOOD ORDER [place] [facility] [address] * (ABNORMAL) Comprehensive metabolic panel [LAB17] (05/06/2017 7:09 AM CDT) Pathologist [facility] Sodium 142 133 - 144 mmol/L [facility] Potassium 4.2 3.4 - 5.3 mmol/L [facility] Chloride 111(H) 94 - 109 mmol/L [facility] Carbon Dioxide 19(L) 20 - 32 mmol/L [facility] Anion Gap 12 3 - 14 mmol/L [facility] Glucose 88 70 - 99 mg/dL [facility] Urea Nitrogen 69(H) 7 - 30 mg/dL [facility] Creatinine 6.00(H) 0.52 - 1.04 mg/dL [facility] GFR Estimate 7(L) >60 mL/min/1.7 m2 [facility] Comment:Non GFR Calc GFR Estimate If Black 9(L) >60 mL/min/1.7 m2 [facility] Comment: GFR Calc Calcium 9.0 8.5 - 10.1 mg/dL [facility] Bilirubin Total 0.4 0.2 - 1.3 mg/dL [facility] Albumin 2.9(L) 3.4 - 5.0 g/dL [facility] Protein Total 6.0(L) 6.8 - 8.8 g/dL [facility] Alkaline Phosphatase 80 40 - 150 U/L [facility] ALT 16 0 - 50 U/L [facility] AST 5 0 - 45 U/L [facility] Blood specimen (specimen) 05/06/2017 7:09 AM CDT 05/06/2017 7:11 AM CDT Livia Hector PA-C LAB - BLOOD ORDER [place] Performing Organization Address City/[facility] Co de Phone Number [address] [phone] * Lipid Profile [LAB18] (05/06/2017 7:09 AM CDT) Cholesterol 125 <200 mg/dL [facility] Triglycerides 67 <150 mg/dL [facility] HDL Cholesterol 53 >49 mg/dL [facility] LDL Cholesterol Calculated 59 <100 mg/dL [facility] Comment:Desirable: <100 mg/d l Non HDL Cholesterol 72 <130 mg/dL [facility] Blood specimen (specimen) 05/06/2017 7:09 AM CDT 05/06/2017 7:11 AM CDT Livia Hector PA-C LAB - BLOOD ORDER [place] Performing Organization Address City/[facility]/ZIP Co de Phone Number [address] [phone] documented in this encounter Visit Diagnoses Diagnosis 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, not specified as acute or chronic, with unspecified pathological lesion in kidney Cardiovascular disease Unspecified cardiovascular disease Chronic renal failure, stage 5 (H) Organ transplant candidate Awaiting organ transplant status Essential hypertension Unspecified essential hypertension Hyperlipidemia Other and unspecified hyperlipidemia Fibrillary glomerulonephritis Nephritis and nephropathy, not specified as acute or chronic, with unspecified pathological lesion in kidney Cardiovascular disease Unspecified cardiovascular disease Chronic renal failure, stage 5 (H) Organ transplant candidate Awaiting organ transplant status Essential hypertension Unspecified essential hypertension Hyperlipidemia Other and unspecified hyperlipidemia Fibrillary glomerulonephritis Nephritis and nephropathy, not specified as acute or chronic, with unspecified pathological lesion in kidney Cardiovascular disease Unspecified cardiovascular disease Chronic renal failure, stage 5 (H) Organ transplant candidate Awaiting organ transplant status Essential hypertension Unspecified essential hypertension Hyperlipidemia Other and unspecified hyperlipidemia documented in this encounter Care Teams Hat Ironer Relationship Specialty Start Date End Date [facility], [address] [address] PCP - General 05/21/16 09/22/17 Keith Bond MD [facility] [address] [place] [address] PCP - General Family Practice 09/23/17 Mague Olsen PA-C [facility] [address] [address] PCP - Assigned PCP 06/13/18 01/25/19 Klaudia Ludwig MD [address] [facility] [address] [place] [address] Referring Physician Nephrology 06/01/15 Alex Oliveros MD [address] [facility] [address] [place], [place] [address] INTERNAL MEDICINE - ENDOCRINOLOGY, DIABETES & METABOLISM 07/25/15 Dave Fermin, RN Nurse Coordinator Nephrology 02/13/17 10/22/17 Mague Olsen PA-C [facility] [address] [place] [address] Assigned PCP 06/13/18 02/26/19 documented as of this encounter
--- OUTSIDE RECORDS SUMMARY | 2024-03-28 09:57 | XMS_ITS | Encounter Summary ---
Author Name Unknown Organization [place] Address [address] [facility] [place] [address] Care Team Providers Care Mending Carrier Name Role Phone Klaudia Ludwig MD Unavailable [phone] Alex Sneed MD Unavailable [facility] Primary Care Provi kayy Dave Fermin RN Unavailable Keith Bond MD Primary Care Provider [phone] Mague Olsen PA-C Unavailable [phone] Mague Olsen PA-C Unavailable [phone] Encounter Details Date Type Department Care Team (Late st Contact Info) Description 07/15/2017 Rekha Casey [facility] [address] [address] Nan Hansen PA-C [address] [place] [address] Social History Tobacco Use Types Packs/Day Years [...] on filedocumented in this encounter Care Teams Mending Carrier Relationship Specialty Start Date End Date Clinic, [address] [address] PCP - General 05/21/16 09/22/17 Keith Bond MD [place] [place] [address] [place] [address] PCP - General Family Practice 09/23/17 Mague Olsen PA-C [facility] [address] [place] [address] PCP - Assigned PCP 06/13/18 01/25/19 Klaudia Ludwig MD [address] [facility] [address] [place] [address] Referring Physician Nephrology 06/01/15 Alex Sneed MD [address] [facility] [address] [place] [address] INTERNAL MEDICINE - ENDOCRINOLOGY, DIABETES & METABOLISM 07/25/15 Dave Fermin, RN Nurse Coordinator Nephrology 02/13/17 10/22/17 Mague Olsen PA-C [facility] [address] [place] [address] Assigned PCP 06/13/18 02/26/19 documented as of this encounter
--- OUTSIDE RECORDS SUMMARY | 2024-03-28 09:57 | XMS_ITS | Encounter Summary ---
Author Name Unknown Organization [place] Address [address] [facility] [place] [address] Care Team Providers Care Concaving Machine Operator Name Role Phone Klaudia Ludwig MD Unavailable [phone] Alex Sneed MD Unavailable [phone] [facility] Primary Care Provi kayy Dave Fermin RN Unavailable Keith Bond MD Primary Care Provider [phone] Mague Olsen PA-C Unavailable [phone] Mague Olsen PA-C Unavailable [phone] Encounter Details Date Type Department Care Team (Late st Contact Info) Description 08/13/2017 [facility] [address] [address] Monique Agarwal, ADALGISA Social History [...] on filedocumented in this encounter Care Teams Concaving Machine Operator Relationship Specialty Start Date End Date [address] [place] [address] PCP - General 05/21/16 09/22/17 Keith Bond MD [facility] [address] [place] [address] PCP - General Family Practice 09/23/17 Mague Olsen PA-C [facility] [address] [place] [address] PCP - Assigned PCP 06/13/18 01/25/19 Klaudia Ludwig MD [address] [facility] [address] [place] [address] Referring Physician Nephrology 06/01/15 Alex Sneed MD [address] [facility] [address] [place], [place] [address] INTERNAL MEDICINE - ENDOCRINOLOGY, DIABETES & METABOLISM 07/25/15 Dave Fermin, RN Nurse Coordinator Nephrology 02/13/17 10/22/17 Mague Olsen PA-C [facility] [address] [place] [address] Assigned PCP 06/13/18 02/26/19 documented as of this encounter
--- OUTSIDE RECORDS SUMMARY | 2024-03-28 09:57 | XMS_ITS | Encounter Summary ---
Author Name Unknown Organization [place] Address [address] [facility] [place] [address] Care Team Providers Care Computerized Table Cutter Name Role Phone Klaudia Ludwig MD Unavailable [phone] Alex Sneed MD Unavailable [phone] Keith Bond MD Primary Care Provider [phone] Encounter Details Date Type Department Care Team (Late st Contact Info) Description 10/19/2020 External Order Results [facility] [address] [place] [phone] Outside, Provider Social History Tobacco Use Types Packs/Day Years [...] on file documented as of this encounter Procedures Procedure Name Priority Date/Time Associated Diagnosis Comments COVID-19 VIRUS (CORONAVIRUS) BY PCR (EXTERNAL RESULT) Routine 10/19/2020 12:00 AM BLANKING MACHINE OPERATOR documented in this encounter Results * COVID-19 Virus (Coronavirus) by PCR (External Result) (10/19/2020 12:00 AM BLANKING MACHINE OPERATOR) COVID-19 Virus by PCR (External Result) Negative Negative COVID-19 EXTERNAL RESULTS 10/19/2020 Narrative [facility] - 10/26/2020 11:59 AM BLANKING MACHINE OPERATOR Verified by Cody Barrett on 10/26/2020. performed by: RAFA Belle [id number], TYLER. [id number], [address] [facility] [address] [place] [address] Patient Reported LABORATORY [facility]FT COVID-19 EXTERNAL RESULTS COVID-19 External Result Scanned into Patient Record by [facility] Refer to Result Comment/Narrative for exact performing laboratory [address] documented in this encounter Visit Diagnoses Not on filedocumented in this encounter Care Teams Computerized Table Cutter Relationship Specialty Start Date End Date Keith Bond MD [facility] [address] [place] [address] PCP - General Family Practice 09/23/17 Klaudia Ludwig MD [address] [facility] [address] [place], [place] [address] Referring Physician Nephrology 06/01/15 Alex Sneed MD [address] [facility] [address] [place], [place] [address] INTERNAL MEDICINE - ENDOCRINOLOGY, DIABETES & METABOLISM 07/25/15 documented as of this encounter
--- OUTSIDE RECORDS SUMMARY | 2024-03-28 09:57 | XMS_ITS | Referral Summary ---
Author Name Unknown Organization [place] Address [address] [facility] [place] [address] Care Team Providers Care Marketing Production Specialist Name Role Phone Klaudia Ludwig MD Unavailable [phone] Alex Sneed MD Unavailable Keith Bond MD Primary Care Provider Allergies Active Allergy Reactions Criticality Noted Date [...] fibrillary GN with nephrotic syndrome, diagnosed at [place] Status post hysterectomy Overview: Total laparoscopic hysterectomy [...] ml/min 07/03/2011 Overview: GFR 42-59, creatinine 0.93-1.39 ([facility]) CKD (chronic kidney disease) stage 4, GFR 15-29 ml/min 05/12/2013 Overview: GFR 28-59, creatinine 0.93-1.98 ([facility] Yang) Immunizations Name Administration Dates Next Due Influenza (IIV3) PF 10/07/2016,08/22/2012 Influenza Vaccine >6 months,quad, PF 08/30/2015, 08/23/2014,09/09/2013 Pneumo Conj 13-V (2010&after) 01/20/2014 Pneumococcal 23 valent 05/17/2012 TD,PF 7+ (Tenivac) 05/14/2004,12/05/1992 TDAP Vaccine (Adacel) 05/17/2012 Twinrix A/B 01/20/2014,06/17/2013,05/11/2013 Social History Tobacco Use Types Packs/Day Years [...] 09/09/2022 7:30 AM CDT Plan of Treatment Not on file Medical Devices Implanted Type Area Top Installer Device Identifier Shelf Expiration Date Model / Serial / Lot Cath Va Precision Chronic Palindrome [id number] Implanted:Qty: 1 on 08/19/2017 by Alejandra Reid PA-C at [facility] Catheter Right: Chest COVIDIEN 02/26/2022 [id number] / / [id number] Procedures Procedure Name Priority Date/Time Associated Diagnosis [...] gender (José Luis et al., NEJM, DOI: 10.1056/[id number]) Blood STRUCTURE OF LEFT UPPER LIMB / Unknown Venipuncture / Unknown 09/09/2022 7:56 AM CDT 09/09/2022 7:59 AM CDT [facility] ACID PUMPER ANALYTICAL LEAD LAB - BLOOD ORDERABLES [facility] Acute Care Lab [address] [facility] (1st floor, no room number) [place] [address], [facility] [phone] * (ABNORMAL) UA with Microscopic (08/11/2017 9:53 AM CDT) Color Urine Red 08/11/2017 10:34 AM CDT [facility] Appearance Urine Clear 08/11/20 17 10:34 AM CDT [facility] Glucose Urine 50(A) NEG^Negat rajan mg/dL 08/11/2017 10:34 AM CDT [facility] Bilirubin Urine Negative NEG^Negat rajan 08/11/2017 10:34 AM CDT [facility] Ketones Urine Negative NEG^Negat rajan mg/dL 08/11/2017 10:34 AM CDT [facility] Specific [place] Urine 1.014 1.003 - 1.035 08/11/2017 10:34 AM CDT [facility] Blood Urine Negative NEG^Negat rajan 08/11/2017 10:34 AM CDT [facility] pH Urine 5.0 5.0 - 7.0 pH 08/11/2017 10:34 AM CDT [facility] Protein Albumin Urine >499(A) NEG^Negat rajan mg/dL 08/11/2017 10:34 AM CDT [facility] Urobilinogen mg/dL 0.0 0.0 - 2.0 mg/dL 08/11/2017 10:34 AM CDT [facility] Nitrite Urine Negative NEG^Negat rajan 08/11/2017 10:34 AM CDT [facility] Leukocyte Esterase Urine Small(A) NEG^Negat rajan 08/11/2017 10:34 AM CDT [facility] Source Midstream Urine 08/11/2017 9:59 AM CDT [facility] WBC Urine 51(H) 0 - 2 /HPF 08/11/2017 10:37 AM CDT [facility] RBC Urine 3(H) 0 - 2 /HPF 08/11/2017 10:37 AM CDT [facility] Bacteria Urine Few(A) NEG^Negat rajan /HPF 08/11/2017 10:37 AM CDT [facility] Squamous Epithelial /HPF Urine 1 0 - 1 /HPF 08/11/2017 10:37 AM CDT [facility] Mucous Urine Present(A) NEG^Negat rajan /LPF 08/11/2017 10:37 AM CDT [facility] Examination of midstream urine specimen (procedure) 08/11/2017 9:53 AM CDT 08/11/2017 9:58 AM CDT Nan Hansen PA-C LAB - URINE ORDER [place] Performing Organization Address City/State/[facility] Co de Phone Number [address] [phone] * (ABNORMAL) Renal panel (08/11/2017 9:53 AM CDT) Sodium 140 133 - 144 mmol/L 08/11/2017 11:08 AM CDT [facility] Potassium 4.6 3.4 - 5.3 mmol/L 08/11/2017 11:08 AM CDT [facility] Chloride 104 94 - 109 mmol/L 08/11/2017 11:08 AM CDT [facility] Carbon Dioxide 22 20 - 32 mmol/L 08/11/2017 11:08 AM CDT [facility] Anion Gap 13 3 - 14 mmol/L 08/11/2017 11:08 AM CDT [facility] Glucose 127(H) 70 - 99 mg/dL 08/11/2017 11:08 AM CDT [facility] Urea Nitrogen 95(H) 7 - 30 mg/dL 08/11/2017 11:08 AM CDT [facility] Creatinine 8.88(H) 0.52 - 1.04 mg/dL 08/11/2017 11:08 AM CDT [facility] GFR Estimate 5(L) >60 mL/min/1.7 m2 08/11/2017 11:08 AM CDT [facility] Comment:Non GFR Calc GFR Estimate If Black 6(L) >60 mL/min/1.7 m2 08/11/2017 11:08 AM CDT [facility] Comment: GFR Calc Calcium 9.2 8.5 - 10.1 mg/dL 08/11/2017 11:08 AM CDT [facility] Phosphorus 7.6(H) 2.5 - 4.5 mg/dL 08/11/2017 11:08 AM CDT [facility] Albumin 2.5(L) 3.4 - 5.0 g/dL 08/11/2017 11:08 AM CDT [facility] Blood specimen (specimen) 08/11/2017 9:53 AM CDT 08/11/2017 9:55 AM CDT Klaudia Frank Ludwig MD LAB - BLOOD OR DERABLES Performing Organization Address City/State/[facility] Co de Phone Number [address] [phone] * (ABNORMAL) CBC with platelets (08/11/2017 9:53 AM CDT) WBC 6.6 4.0 - 11.0 10e9/L 08/11/2017 10:03 AM CDT [facility] RBC Count 3.27(L) 3.8 - 5.2 10e12/L 08/11/2017 10:03 AM CDT [facility] Hemoglobin 9.2(L) 11.7 - 15.7 g/dL 08/11/2017 10:03 AM CDT [facility] Hematocrit 30.2(L) 35.0 - 47.0 % 08/11/2017 10:03 AM CDT [facility] MCV 92 78 - 100 fl 08/11/2017 10:03 AM CDT [facility] MCH 28.1 26.5 - 33.0 pg 08/11/2017 10:03 AM CDT [facility] MCHC 30.5(L) 31.5 - 36.5 g/dL 08/11/2017 10:03 AM CDT [facility] RDW 13.7 10.0 - 15.0 % 08/11/2017 10:03 AM CDT [facility] Platelet Count 298 150 - 450 10e9/L 08/11/2017 10:03 AM CDT [facility] Blood specimen (specimen) 08/11/2017 9:53 AM CDT 08/11/2017 9:55 AM CDT Nan Hansen PA-C LAB - BLOOD ORDER [place] Performing Organization Address City/State/[facility] Co de Phone Number [address] [phone] * (ABNORMAL) Comprehensive metabolic panel (08/06/2017 6:18 AM CDT) Sodium 138 133 - 144 mmol/L 08/06/2017 6:59 AM CDT [facility] Potassium 4.4 3.4 - 5.3 mmol/L 08/06/2017 6:59 AM CDT [facility] Chloride 107 94 - 109 mmol/L 08/06/2017 6:59 AM CDT [facility] Carbon Dioxide 18(L) 20 - 32 mmol/L 08/06/2017 6:59 AM CDT [facility] Anion Gap 14 3 - 14 mmol/L 08/06/2017 6:59 AM CDT [facility] Glucose 83 70 - 99 mg/dL 08/06/2017 6:59 AM CDT [facility] Urea Nitrogen 104(H) 7 - 30 mg/dL 08/06/2017 6:59 AM CDT [facility] Creatinine 9.54(H) 0.52 - 1.04 mg/dL 08/06/2017 6:59 AM CDT [facility] GFR Estimate 4(L) >60 mL/min/1.7 m2 08/06/2017 6:59 AM CDT [facility] Comment:Non GFR Calc GFR Estimate If Black 5(L) >60 mL/min/1.7 m2 08/06/2017 6:59 AM CDT [facility] Comment: GFR Calc Calcium 9.0 8.5 - 10.1 mg/dL 08/06/2017 6:59 AM CDT [facility] Bilirubin Total 0.5 0.2 - 1.3 mg/dL 08/06/2017 6:59 AM CDT [facility] Albumin 2.7(L) 3.4 - 5.0 g/dL 08/06/2017 6:59 AM CDT [facility] Protein Total 5.9(L) 6.8 - 8.8 g/dL 08/06/2017 6:59 AM CDT [facility] Alkaline Phosphatase 68 40 - 150 U/L 08/06/2017 6:59 AM CDT [facility] ALT 19 0 - 50 U/L 08/06/2017 6:59 AM CDT [facility] AST 11 0 - 45 U/L 08/06/2017 6:59 AM CDT [facility] Blood specimen (specimen) 08/06/2017 6:18 AM CDT 08/06/2017 6:24 AM CDT Zeke Bell MD LAB - BLOOD ORDER [place] [facility] [address] [place] [address] * (ABNORMAL) Parathyroid Hormone Intact (07/13/2017 8:28 AM CDT) Parathyroid Hormone Intact 164(H) 12 - 72 pg/mL 07/13/2017 11:12 AM CDT [facility] Blood specimen (specimen) 07/13/2017 8:28 AM CDT 07/13/2017 8:33 AM CDT Nan Hansen PA-C LAB - BLOOD ORDER [place] [facility] [address] [place] [address] * HIV Antigen Antibody Combo Pretransplant (05/06/2017 7:09 AM CDT) HIV Antigen Antibody Combo Pretransplant Nonreactive HIV-1 p24 Ag & HIV-1/HIV-2 Ab Not Detected NR [facility] Blood specimen (specimen) 05/06/2017 7:09 AM CDT 05/06/2017 7:11 AM CDT Livia Hector PA-C LAB - BLOOD ORDER [place] Performing Organization Address City/[facility]/ZIP Co de Phone Number [facility] [address] * Lipid Profile [LAB18] (05/06/2017 7:09 AM CDT) Cholesterol 125 <200 mg/dL [facility] Triglycerides 67 <150 mg/dL [facility] HDL Cholesterol 53 >49 mg/dL [facility] LDL Cholesterol Calculated 59 <100 mg/dL [facility] Comment:Desirable: <100 mg/d l Non HDL Cholesterol 72 <130 mg/dL [facility] Blood specimen (specimen) 05/06/2017 7:09 AM CDT 05/06/2017 7:11 AM CDT Livia Hector PA-C LAB - BLOOD ORDER [place] [address] [phone] * Hepatitis C antibody [[id number]] (05/06/2017 7:09 AM CDT) Hepatitis C Antibody Nonreactive Assay performance characteristics have not been established for newborns, infants, and children NR [facility] Blood specimen (specimen) 05/06/2017 7:09 AM CDT 05/06/2017 7:11 AM CDT Livia Hector PA-C LAB - BLOOD ORDER [place] [facility] [address] [place], [place] [address] [place] [address] * A THIN LAYER PAP SCREEN (02/12/2009 12:00 AM CDT) PAP NIL COPATH Copath Report Patient Name: SISSY NORIEGA MR#: [id number] Specimen #: [id number] Collected: 02/12/2009 Received: 02/13/2009 Reported: 02/14/2009 13:01 Ordering Phy(s): EDWARD SWEENEY SPECIMEN/STAIN PROCESS: Pap thin layer prep screening (Sure[facility]) ? Pap-Cyto x 1, Reflex HPV x 1 SOURCE: Cervical, endocervical Pap thin layer prep screening ([facility]) SPECIMEN ADEQUACY: Satisfactory for evaluation. -Transformation zone component present. CYTOLOGIC INTERPRETATION: Negative for Intraepithelial Lesion or Malignancy Electronically signed out by: VERÓNICA Eriwn (ASCP) Processed and screened at [facility], [facility] CLINICAL HISTORY: LMP: 01/17/09 TESTING LAB LOCATION: [address] ??[phone] COLLECTION SITE: Client: ??[facility] Location: [facility] (S) COPATH 02/12/2009 02/13/2009 1:3 8 PM CDT Edward Sweeney DIONNE ANALYTICAL LEAD LABORATORY COPATH * (ABNORMAL) HEMOGRAM W/ PLATELET [...] Advance Directives For more information, please contact: [phone] Documents on File Type Date Recorded Patient Glass Fitter Expl anation Advance Directives and Living Will [...] 8:18 AM 05/14/2004 8:18 AM Care Teams Marketing Production Specialist Relationship Specialty Start Date End Date Keith Bond MD [address] [address] PCP - General Family Practice 09/23/17 Klaudia Ludwig MD [address] [facility] [address] [place], [place] [address] Referring Physician Nephrology 06/01/15 Alex Sneed MD [address] [facility] [address] [place] [address] INTERNAL MEDICINE - ENDOCRINOLOGY, DIABETES & METABOLISM 07/25/15
--- OUTSIDE RECORDS SUMMARY | 2024-03-28 09:57 | XMS_ITS | Encounter Summary ---
Author Name Unknown Organization [place] Address [address] [facility] [place] [address] Care Team Providers Care Flying Squad Worker Name Role Phone Klaudia Ludwig MD Unavailable + [phone] Alex Sneed MD Unavailable [facility] Primary Care Provi kayy Dave Fermin RN Unavailable Keith Bond MD Primary Care Provider [phone] Mague Olsen PA-C Unavailable [phone] Mague Olsen PA-C Unavailable [phone] Encounter Details Date Type Department Care Team (Late st Contact Info) Description 08/12/2017 Rekha Mo [facility] Nephrology Clinic [address] [address] Klaudia Ludwig MD [address] [place] [address] [address] [place], [place] [id number] Social History Tobacco Use Types Packs/Day Years [...] on filedocumented in this encounter Care Teams Flying Squad Worker Relationship Specialty Start Date End Date Clinic, [address] [address] PCP - General 05/21/16 09/22/17 Keith Bond MD [facility] [address] [place] [address] PCP - General Family Practice 09/23/17 Mague Olsen PA-C [facility] [address] [place] [address] PCP - Assigned PCP 06/13/18 01/25/19 Klaudia Ludwig MD [address] [facility] [address] [place] [address] Referring Physician Nephrology 06/01/15 Alex Sneed MD [address] [facility] [address] [place] [address] INTERNAL MEDICINE - ENDOCRINOLOGY, DIABETES & METABOLISM 07/25/15 Dave Fermin, RN Nurse Coordinator Nephrology 02/13/17 10/22/17 Mague Olsen PA-C [facility] [address] [place] [address] Assigned PCP 06/13/18 02/26/19 documented as of this encounter
--- OUTSIDE RECORDS SUMMARY | 2024-03-28 09:57 | XMS_ITS | Encounter Summary ---
Author Name Unknown Organization [place] Address [address] [place] [address] Care Team Providers Care Media Account Executive Name Role Phone Klaudia Ludwig MD Unavailable + [phone] Alex Sneed MD Unavailable [phone] [facility] Primary Care Provi kayy Dave Fermin RN Unavailable Keith Bond MD Primary Care Provider [phone] Mague Olsen PA-C Unavailable [phone] Mague Olsen PA-C Unavailable [phone] Encounter Details Date Type Department Care Team (Late st Contact Info) Description 08/14/2017 [facility] [address] [address] Monique Agarwal, ADALGISA Social History [...] on filedocumented in this encounter Care Teams Media Account Executive Relationship Specialty Start Date End Date [address] [place] [address] PCP - General 05/21/16 09/22/17 Keith Bond MD [facility] [address] [place] [address] PCP - General Family Practice 09/23/17 Mague Olsen PA-C [facility] [address] [place] [address] PCP - Assigned PCP 06/13/18 01/25/19 Klaudia Ludwig MD [address] [facility] [address] [place] [address] Referring Physician Nephrology 06/01/15 Alex Sneed MD 420 [facility] [address] [place], [place] [address] INTERNAL MEDICINE - ENDOCRINOLOGY, DIABETES & METABOLISM 07/25/15 Dave Fermin, RN Nurse Coordinator Nephrology 02/13/17 10/22/17 Mague Olsen PA-C [facility] [address] [place] [address] Assigned PCP 06/13/18 02/26/19 documented as of this encounter
--- OUTSIDE RECORDS SUMMARY | 2024-03-28 09:57 | XMS_ITS | Encounter Summary ---
Author Name Unknown Organization [place] Address [address] [facility] [place] [address] Care Team Providers Care Final Touch Up Painter Name Role Phone Klaudia Ludwig MD Unavailable + [phone] Alex Sneed MD Unavailable [facility] Primary Care Provi kayy Dave Fermin RN Unavailable Keith Bond MD Primary Care Provider [phone] Mague Olsen PA-C Unavailable [phone] Mague Olsen PA-C Unavailable [phone] Encounter Details Date Type Department Care Team (Late st Contact Info) Description 08/21/2017 Rekha Mo [facility] Nephrology Clinic [address] [address] Klaudia Ludwig MD [address] [place] [address] [address] [place], [place] [id number] Social History Tobacco Use Types Packs/Day Years [...] on filedocumented in this encounter Care Teams Final Touch Up Painter Relationship Specialty Start Date End Date Clinic, [address] [address] PCP - General 05/21/16 09/22/17 Keith Bond MD [facility] [address] [place] [address] PCP - General Family Practice 09/23/17 Mague Olsen PA-C [facility] [address] [place] [address] PCP - Assigned PCP 06/13/18 01/25/19 Klaudia Ludwig MD 717 [facility] [address] [place] [address] Referring Physician Nephrology 06/01/15 Alex Sneed MD [address] [facility] [address] [place] [address] INTERNAL MEDICINE - ENDOCRINOLOGY, DIABETES & METABOLISM 07/25/15 Dave Fermin, RN Nurse Coordinator Nephrology 02/13/17 10/22/17 Mague Olsen PA-C [facility] [address] [place] [address] Assigned PCP 06/13/18 02/26/19 documented as of this encounter
--- OUTSIDE RECORDS SUMMARY | 2024-03-28 09:57 | XMS_ITS | Encounter Summary ---
Author Name Unknown Organization [place] Address [address] [facility] [place] [address] Care Team Providers Care Poker Dealer Name Role Phone Klaudia Ludwig MD Unavailable [phone] Alex Sneed MD Unavailable [facility] Primary Care Provi kayy Dave Fermin RN Unavailable Keith Bond MD Primary Care Provider [phone] Mague Olsen PA-C Unavailable [phone] Mague Olsen PA-C Unavailable [phone] Encounter Details Date Type Department Care Team (Late st Contact Info) Description 04/30/2017 [facility] Medical Advice Initial Department [facility] Social History Tobacco Use Types Packs/Day Years [...] on filedocumented in this encounter Care Teams Poker Dealer Relationship Specialty Start Date End Date [address] [address] PCP - General 05/21/16 09/22/[address] [facility] [address] [place] [address] PCP - General Family Practice 09/23/17 Mague Olsen PA-C [facility] [address] [place] [address] PCP - Assigned PCP 06/13/18 01/25/19 Klaudia Ludwig MD [address]17 [facility] [address] [place] [address] Referring Physician Nephrology 06/01/15 Alex Sneed MD 420 [facility] [address] [place] [address] INTERNAL MEDICINE - ENDOCRINOLOGY, DIABETES & METABOLISM 07/25/15 Dave Fermin, RN Nurse Coordinator Nephrology 02/13/17 10/22/17 Mague Olsen PA-C [facility] [address] [place] [address] Assigned PCP 06/13/18 02/26/19 documented as of this encounter
--- OUTSIDE RECORDS SUMMARY | 2024-03-28 09:57 | XMS_ITS | Encounter Summary ---
Author Name Unknown Organization [place] Address [address] [facility] [place] [address] Care Team Providers Care Deep Tissue Massage Therapist Name Role Phone Klaudia Ludwig MD Unavailable [phone] Alex Sneed MD Unavailable [phone] Keith Bond MD Primary Care Provider [phone] Encounter Details Date Type Department Care Team (Late st Contact Info) Description 02/12/2022 [facility] Medical Advice [facility] [address] [place] [address] Sara Peterson RN Social History Tobacco Use Types Packs/Day [...] on filedocumented in this encounter Care Teams Deep Tissue Massage Therapist Relationship Specialty Start Date End Date Keith Bond MD [facility] [address] [place] [address] PCP - General Family Practice 09/23/17 Klaudia Ludwig MD [address]17 [facility] [address] [place] [address] Referring Physician Nephrology 06/01/15 Alex Sneed MD 420 [facility] [address] [place] [address] INTERNAL MEDICINE - ENDOCRINOLOGY, DIABETES & METABOLISM 07/25/15 documented as of this encounter
--- OUTSIDE RECORDS SUMMARY | 2024-03-28 09:58 | XMS_ITS | Encounter Summary ---
Author Name Unknown Organization [place] Address [address] [facility] [place] [address] Care Team Providers Care Armoured Car Escort Name Role Phone Lubna Baron MD Primary Care Provid er Klaudia Ludwig MD Unavailable + [phone] Klaudia Ludwig MD Unavailable + [phone] Lubna Baron MD Unavailable + [phone] Alex Sneed MD Unavailable [phone] [facility] Primary Care Provi kayy Dave Fermin RN Unavailable Keith Bond MD Primary Care Provider [phone] Mague Olsen PA-C Unavailable [phone] Mague Olsen PA-C Unavailable [phone] Encounter Details Date Type Department Care Team (Late st Contact Info) Description 08/04/2014 MyC Medical Advice Initial Department [facility] Social History Tobacco Use Types Packs/Day Years [...] on filedocumented in this encounter Care Teams Armoured Car Escort Relationship Specialty Start Date End Date Lubna Baron MD [facility] [place] [address] PCP - General 05/10/08 01/03/[address] [address] PCP - General 05/21/16 09/22/[address] [facility] [address] [place] [address] PCP - General Family Practice 09/23/17 Mague Olsen PA-C [facility] [address] [place] [address] PCP - Assigned PCP 06/13/18 01/25/19 Klaudia Ludwig MD 717 [facility] [address] [place] [address] Nephrology 03/28/15 10/02/15 Klaudia Ludwig MD 717 [facility] [address] [place] [address] Referring Physician Nephrology 06/01/15 Lubna Baron MD [facility] [place] [address] Family Practice 07/25/15 03/03/17 Alex Sneed MD 420 [facility] [address] [place] [address] INTERNAL MEDICINE - ENDOCRINOLOGY, DIABETES & METABOLISM 07/25/15 Dave Fermin, RN Nurse Coordinator Nephrology 02/13/17 10/22/17 Mague Olsen PA-C [facility] [address] [facility] [address] [place] [address] Assigned PCP 06/13/18 02/26/19 documented as of this encounter
--- OUTSIDE RECORDS SUMMARY | 2024-03-28 09:58 | XMS_ITS | Encounter Summary ---
Author Name Unknown Organization [place] Address [address] [place] [address] Care Team Providers Care Computerized Mill Mill Recorder Name Role Phone Lubna Baron MD Primary Care Provid er Klaudia Ludwig MD Unavailable + [phone] Klaudia Ludwig MD Unavailable + [phone] Lubna Baron MD Unavailable + [phone] Alex Sneed MD Unavailable [phone] [facility] Primary Care Provi kayy Dave Fermin RN Unavailable Keith Bond MD Primary Care Provider [phone] Mague Olsen PA-C Unavailable +[phone] Mague Olsen PA-C Unavailable [phone] Encounter Details Date Type Department Care Team (Late st Contact Info) Description 11/22/2013 MyC Medical Advice Initial Department [facility] Social History Tobacco Use Types Packs/Day Years [...] filedocumented in this encounter Care Teams Computerized Mill Mill Recorder Relationship Specialty Start Date End Date Lubna Baron MD [facility] ONE [facility] [place] [address] PCP - General 05/10/08 01/03/[address] [address] PCP - General 05/21/16 09/22/17 Keith Bond MD [facility] [address] [place] [address] PCP - General Family Practice 09/23/17 Mague Olsen PA-C [facility] [address] [place] [address] PCP - Assigned PCP 06/13/18 01/25/19 Klaudia Ludwig MD [address] [facility] [address] [place] [address] Nephrology 03/28/15 10/02/15 Klaudia Ludwig MD [address] [facility] [address] [place] [address] Referring Physician Nephrology 06/01/15 Lubna Baron MD [facility] ONE [facility] [place] [address] Family Practice 07/25/15 03/03/17 Alex Sneed MD [address] [facility] [address] [place] [address] INTERNAL MEDICINE - ENDOCRINOLOGY, DIABETES & METABOLISM 07/25/15 Dave Fermin, RN Nurse Coordinator Nephrology 02/13/17 10/22/17 Mague Olsen PA-C [facility] [address] [facility] [address] [place] [address] Assigned PCP 06/13/18 02/26/19 documented as of this encounter
--- OUTSIDE RECORDS SUMMARY | 2024-03-28 09:58 | XMS_ITS | Encounter Summary ---
Author Name Unknown Organization [place] Address [address] [facility] [place] [address] Care Team Providers Care Production Technician Name Role Phone Lubna Baron MD Primary Care Provid er Klaudia Ludwig MD Unavailable + [phone] Klaudia Ludwig MD Unavailable + [phone] Lubna Baron MD Unavailable + [phone] Alex Sneed MD Unavailable [facility] Primary Care Provi kayy Dave Fermin RN Unavailable Keith Bond MD Primary Care Provider [phone] Mague Olsen PA-C Unavailable +[phone] Mague Olsen PA-C Unavailable +[phone] Encounter Details Date Type Department Care Team (Late st Contact Info) Description 07/31/2014 MyC Medical Advice P [facility] [address] [place] [address] Klaudia Ludwig MD [address] [place] [address] [address] [place] [address] Social History Tobacco Use Types Packs/Day Years [...] on filedocumented in this encounter Care Teams Production Technician Relationship Specialty Start Date End Date Lubna Baron MD [place] [address] PCP - General 05/10/08 01/03/[address] [address] PCP - General 05/21/16 09/22/17 Keith Bond MD [address] [address] PCP - General Family Practice 09/23/17 Mague Olsen PA-C [facility] [address] [address] PCP - Assigned PCP 06/13/18 01/25/19 Klaudia Ludwig MD [address] [place] [address] Nephrology 03/28/15 10/02/15 Klaudia Ludwig MD [address] [place] [address] [place] [address] Referring Physician Nephrology 06/01/15 Lubna Baron [place] [address] Family Practice 07/25/15 03/03/17 Alex Sneed MD [address] [place] [address] 136 [place] [address] INTERNAL MEDICINE - ENDOCRINOLOGY, DIABETES & METABOLISM 07/25/15 Dave Fermin, ADALGISA Nurse Coordinator Nephrology 02/13/17 10/22/17 Mague Olsen PA-C [facility] [address] [place] [address] Assigned PCP 06/13/18 02/26/19 documented as of this encounter
--- OUTSIDE RECORDS SUMMARY | 2024-03-28 09:58 | XMS_ITS | Encounter Summary ---
Author Name Unknown Organization [place] Address [address] [facility] [place] [address] Care Team Providers Care Tabular Typist Name Role Phone Lubna Baron MD Primary Care Provid er Klaudia Ludwig MD Unavailable + [phone] Klaudia Ludwig MD Unavailable + [phone] Lubna Baron MD Unavailable + [phone] Alex Sneed MD Unavailable [facility] Primary Care Provi kayy Dave Fermin RN Unavailable Keith Bond MD Primary Care Provider [phone] Mague Olsen PA-C Unavailable +[phone] Mague Olsen PA-C Unavailable [phone] Encounter Details Date Type Department Care Team (Late st Contact Info) Description 06/21/2014 MyC Medical Advice P [place] Renal [address] [place] [address] Klaudia Ludwig MD [address] [place] [address] [address] [place] [address] Social History Tobacco Use Types [...] on filedocumented in this encounter Care Teams Tabular Typist Relationship Specialty Start Date End Date Lubna Baron MD [facility] [place] [address] PCP - General 05/10/08 01/03/[address] [address] PCP - General 05/21/16 09/22/17 Keith Bond MD [address] [address] PCP - General Family Practice 09/23/17 Mague Olsen PA-C [facility] [address] [address] PCP - Assigned PCP 06/13/18 01/25/19 Klaudia Ludwig MD [address] [place] [address] Nephrology 03/28/15 10/02/15 Klaudia Ludwig MD [address] [place] [address] [place] [address] Referring Physician Nephrology 06/01/15 Lubna Baron MD [place] [address] Family Practice 07/25/15 03/03/17 Alex Sneed MD [address] [place] [address] 136 [place] [address] INTERNAL MEDICINE - ENDOCRINOLOGY, DIABETES & METABOLISM 07/25/15 Dave Fermin, ADALGISA Nurse Coordinator Nephrology 02/13/17 10/22/17 Mague Olsen PA-C [facility] [address] [place] [address] Assigned PCP 06/13/18 02/26/19 documented as of this encounter
--- OUTSIDE RECORDS SUMMARY | 2024-03-28 09:58 | XMS_ITS | Encounter Summary ---
Author Name Unknown Organization [place] Address [address] [facility] [place] [address] Care Team Providers Care Psychologists Name Role Phone Lubna Baron MD Primary Care Provid er Klaudia Ludwig MD Unavailable + [phone] Klaudia Ludwig MD Unavailable + [phone] Lubna Baron MD Unavailable + [phone] Alex Sneed MD Unavailable [facility] Primary Care Provi kayy Dave Fermin RN Unavailable Keith Bond MD Primary Care Provider [phone] Mague Olsen PA-C Unavailable [phone] Mague Olsen PA-C Unavailable [phone] Encounter Details Date Type Department Care Team (Late st Contact Info) Description 12/11/2014 MyC Medical Advice P [place] [facility] [address] [place] [address] Klaudia Ludwig MD [address] [place] [address] [address] [place] [address] Social History Tobacco Use Types [...] on filedocumented in this encounter Care Teams Psychologists Relationship Specialty Start Date End Date Lubna Baron MD [facility] [place] [address] PCP - General 05/10/08 01/03/[address] [address] PCP - General 05/21/16 09/22/17 Keith Bond MD [address] [address] PCP - General Family Practice 09/23/17 Mague Olsen PA-C [facility] [address] [address] PCP - Assigned PCP 06/13/18 01/25/19 Klaudia Ludwig MD [address] [place] [address] Nephrology 03/28/15 10/02/15 Klaudia Ludwig MD [address] [place] [address] [place] [address] Referring Physician Nephrology 06/01/[address] [facility] [place] [address] Family Practice 07/25/15 03/03/17 Alex Sneed MD [address] [place] [address] 136 [place] [address] INTERNAL MEDICINE - ENDOCRINOLOGY, DIABETES & METABOLISM 07/25/15 Dave Fermin, ADALGISA Nurse Coordinator Nephrology 02/13/17 10/22/17 Mague Olsen PA-C [facility] [address] [place] [address] Assigned PCP 06/13/18 02/26/19 documented as of this encounter
--- OUTSIDE RECORDS SUMMARY | 2024-03-28 09:58 | XMS_ITS | Encounter Summary ---
Author Name Unknown Organization [place] Address [address] [place] [address] Care Team Providers Care Merchandise Clerk Name Role Phone Lubna Baron MD Primary Care Provid er Klaudia Ludwig MD Unavailable + [phone] Klaudia Ludwig MD Unavailable + [phone] Lubna Baron MD Unavailable + [phone] Alex Sneed MD Unavailable [facility] Primary Care Provi kayy Dave Fermin RN Unavailable Keith Bond MD Primary Care Provider [phone] Mague Olsen PA-C Unavailable [phone] Mague Olsen PA-C Unavailable [phone] Encounter Details Date Type Department Care Team (Late st Contact Info) Description 01/18/2014 MyC Medical Advice Nephrology 2nd Floor, Clinic [address] [address] Klaudia Ludwig MD [address] [place] [address] [address] [place], [place] [id number] Social History Tobacco Use Types Packs/Day Years [...] on filedocumented in this encounter Care Teams Merchandise Clerk Relationship Specialty Start Date End Date Lubna Baron MD [facility] [place] [address] PCP - General 05/10/08 01/03/[address] [address] PCP - General 05/21/16 09/22/17 Keith Bond MD [address] [address] PCP - General Family Practice 09/23/17 Mague Olsen PA-C [facility] [address] [address] PCP - Assigned PCP 06/13/18 01/25/19 Klaudia Ludwig MD [address] [place] [address] Nephrology 03/28/15 10/02/15 Klaudia Ludwig MD [address] [place] [address] Referring Physician Nephrology 06/01/15 Lubna Baron MD [facility] [place] [address] Family Practice 07/25/15 03/03/17 Alex Sneed MD [address] [place] [address] 136 [place] [address] INTERNAL MEDICINE - ENDOCRINOLOGY, DIABETES & METABOLISM 07/25/15 Dave Fermin, RN Nurse Coordinator Nephrology 02/13/17 10/22/17 Mague Olsen PA-C [facility] [address] [place] [address] Assigned PCP 06/13/18 02/26/19 documented as of this encounter
--- OUTSIDE RECORDS SUMMARY | 2024-03-28 09:58 | XMS_ITS | Encounter Summary ---
Author Name Unknown Organization [place] Address [address] [facility] [place] [address] Care Team Providers Care Clinical Technologist Name Role Phone Lubna Baron MD Primary Care Provid er Klaudia Ludwig MD Unavailable + [phone] Klaudia Ludwig MD Unavailable + [phone] Lubna Baron MD Unavailable + [phone] Alex Sneed MD Unavailable [facility] Primary Care Provi kayy Dave Fermin RN Unavailable Keith Bond MD Primary Care Provider [phone] Mague Olsen PA-C Unavailable +[phone] Mague Olsen PA-C Unavailable [phone] Encounter Details Date Type Department Care Team (Late st Contact Info) Description 05/03/2014 MyC Medical Advice P [place] Renal [address] [place] [address] Klaudia Ludwig MD [address] [place] [address] [address] [place] [address] Social History Tobacco Use Types [...] on filedocumented in this encounter Care Teams Clinical Technologist Relationship Specialty Start Date End Date Lubna Baron MD [facility] [place] [address] PCP - General 05/10/08 01/03/[address] [address] PCP - General 05/21/16 09/22/17 Keith Bond MD [address] [address] PCP - General Family Practice 09/23/17 Mague Olsen PA-C [facility] [address] [address] PCP - Assigned PCP 06/13/18 01/25/19 Klaudia Ludwig MD [address] [place] [address] Nephrology 03/28/15 10/02/15 Klaudia Ludwig MD [address] [place] [address] [place] [address] Referring Physician Nephrology 06/01/[address] [facility] [place] [address] Family Practice 07/25/15 03/03/17 Alex Sneed MD [address] [place] [address] 136 [place] [address] INTERNAL MEDICINE - ENDOCRINOLOGY, DIABETES & METABOLISM 07/25/15 Dave Fermin, ADALGISA Nurse Coordinator Nephrology 02/13/17 10/22/17 Mague Olsen PA-C [facility] [address] [place] [address] Assigned PCP 06/13/18 02/26/19 documented as of this encounter
--- OUTSIDE RECORDS SUMMARY | 2024-03-28 09:58 | XMS_ITS | Encounter Summary ---
Author Name Unknown Organization [place] Address [address] [facility] [place] [address] Care Team Providers Care Flight Surveyor Name Role Phone Lubna Baron MD Primary Care Provid er Klaudia Ludwig MD Unavailable + [phone] Klaudia Ludwig MD Unavailable + [phone] Lubna Baron MD Unavailable + [phone] Alex Sneed MD Unavailable [phone] [facility] Primary Care Provi kayy Dave Fermin RN Unavailable Keith Bond MD Primary Care Provider [phone] Mague Olsen PA-C Unavailable +[phone] Mague Olsen PA-C Unavailable [phone] Encounter Details Date Type Department Care Team (Late st Contact Info) Description 01/31/2015 MyC Medical Advice Initial Department [facility] Social History Tobacco Use Types Packs/Day Years [...] on filedocumented in this encounter Care Teams Flight Surveyor Relationship Specialty Start Date End Date Lubna Baron MD [facility] ONE [facility] [place] [address] PCP - General 05/10/08 01/03/[address] [address] PCP - General 05/21/16 09/22/17 Keith Bond MD [facility] [address] [place] [address] PCP - General Family Practice 09/23/17 Mague Olsen PA-C [facility] [address] [place] [address] PCP - Assigned PCP 06/13/18 01/25/19 Klaudia Ludwig MD [address] [facility] [address] [place] [address] Nephrology 03/28/15 10/02/15 Klaudia Ludwig MD [address] [facility] [address] [place] [address] Referring Physician Nephrology 06/01/15 Lubna Baron MD [facility] ONE [facility] [place] [address] Family Practice 07/25/15 03/03/17 Alex Sneed MD 420 [facility] 136 [place] [address] INTERNAL MEDICINE - ENDOCRINOLOGY, DIABETES & METABOLISM 07/25/15 Dave Fermin, RN Nurse Coordinator Nephrology 02/13/17 10/22/17 Mague Olsen PA-C [facility] [address] [facility] [address] [place] [address] Assigned PCP 06/13/18 02/26/19 documented as of this encounter
--- OUTSIDE RECORDS SUMMARY | 2024-03-28 09:58 | XMS_ITS | Encounter Summary ---
Author Name Unknown Organization [place] Address [address] [facility] [place] [address] Care Team Providers Care Coordinator Of Rehabilitation Services Name Role Phone Lubna Baron MD Primary Care Provid er Klaudia Ludwig MD Unavailable + [phone] Klaudia Ludwig MD Unavailable + [phone] Lubna Baron MD Unavailable + [phone] Alex Sneed MD Unavailable [phone] [facility] Primary Care Provi kayy Dave Fermin RN Unavailable Keith Bond MD Primary Care Provider [phone] Mague Olsen PA-C Unavailable +[phone] Mague Olsen PA-C Unavailable [phone] Reason for Visit * Reason Onset Date Comments Hip Pain 10/28/2013 Encounter Details Date Type Department Care Team (Late st Contact Info) Description 10/28/2013 [facility] [address] [phone] Lubna Baron MD [facility] [address] [place], [place] [address] Hip Pain Social History Tobacco Use Types Packs/Day Years [...] on filedocumented in this encounter Care Teams Coordinator Of Rehabilitation Services Relationship Specialty Start Date End Date Lubna Baron MD [facility] [place] [address] PCP - General 05/10/08 01/03/[address] [address] PCP - General 05/21/16 09/22/17 Keith Bond MD [place] [address] [place] [address] PCP - General Family Practice 09/23/17 Mague Olsen PA-C [facility] [address] [place] [address] PCP - Assigned PCP 06/13/18 01/25/19 Klaudia Ludwig MD 717 [facility] [address] [place] [address] Nephrology 03/28/15 10/02/15 Klaudia Ludwig MD 717 [facility] [address] [place] [address] Referring Physician Nephrology 06/01/15 Lubna Baron MD [facility] [place] [address] Family Practice 07/25/15 03/03/17 Alex Sneed MD [address] [place] [address] 136 [place], [place] [address] INTERNAL MEDICINE - ENDOCRINOLOGY, DIABETES & METABOLISM 07/25/15 Dave Fermin, RN Nurse Coordinator Nephrology 02/13/17 10/22/17 Mague Olsen PA-C [facility] [address] [place] [address] Assigned PCP 06/13/18 02/26/19 documented as of this encounter
--- OUTSIDE RECORDS SUMMARY | 2024-03-28 09:58 | XMS_ITS | Encounter Summary ---
Author Name Unknown Organization [place] Address [address] [facility] [place] [address] Care Team Providers Care Relish Maker Name Role Phone Lubna Baron MD Primary Care Provid er Klaudia Ludwig MD Unavailable + [phone] Klaudia Ludwig MD Unavailable + [phone] Lubna Baron MD Unavailable + [phone] Alex Sneed MD Unavailable [phone] [facility] Primary Care Provi kayy Dave Fermin RN Unavailable Keith Bond MD Primary Care Provider [phone] Mague Olsen PA-C Unavailable [phone] Mague Olsen PA-C Unavailable [phone] Encounter Details Date Type Department Care Team (Late st Contact Info) Description 05/31/2015 MyC Medical Advice Initial Department [facility] Social History Tobacco Use Types Packs/Day [...] on filedocumented in this encounter Care Teams Relish Maker Relationship Specialty Start Date End Date Lubna Baron MD [facility] ONE [facility] [place] [address] PCP - General 05/10/08 01/03/[address] [address] PCP - General 05/21/16 09/22/[address] [facility] [address] [place] [address] PCP - General Family Practice 09/23/17 Mague Olsen PA-C [facility] [address] [place] [address] PCP - Assigned PCP 06/13/18 01/25/19 Klaudia Ludwig MD [address]17 [facility] [address] [place] [address] Nephrology 03/28/15 10/02/15 Klaudia Ludwig MD [address] [facility] [address] [place] [address] Referring Physician Nephrology 06/01/15 Lubna Baron MD [facility] ONE [facility] [place] [address] Family Practice 07/25/15 03/03/17 Alex Sneed MD 420 [facility] 136 [place] [address] INTERNAL MEDICINE - ENDOCRINOLOGY, DIABETES & METABOLISM 07/25/15 Dave Fermin, RN Nurse Coordinator Nephrology 02/13/17 10/22/17 Mague Olsen PA-C [facility] [address] [facility] 104 [place] [address] Assigned PCP 06/13/18 02/26/19 documented as of this encounter
--- OUTSIDE RECORDS SUMMARY | 2024-03-28 09:58 | XMS_ITS | Encounter Summary ---
Author Name Unknown Organization [place] Address [address] [facility] [place] [address] Care Team Providers Care Laborer Petroleum Refinery Name Role Phone Klaudia Ludwig MD Unavailable [phone] Lubna Baron MD Unavailable + [phone] Alex Sneed MD Unavailable [phone] [facility] Primary Care Provi kayy Dave Fermin RN Unavailable Keith Bond MD Primary Care Provider [phone] Mague Olsen PA-C Unavailable [phone] Mague Olsen PA-C Unavailable [phone] Encounter Details Date Type Department Care Team (Late st Contact Info) Description 05/19/2016 MyC Medical Adv[facility] [place] Social History Tobacco Use Types Packs/Day Years [...] on filedocumented in this encounter Care Teams Laborer Petroleum Refinery Relationship Specialty Start Date End Date [address] [address] PCP - General 05/21/16 09/22/17 Keith Bond MD [address] [address] PCP - General Family Practice 09/23/17 Mague Olsen PA-C [facility] [address] [place] [address] PCP - Assigned PCP 06/13/18 01/25/19 Klaudia Ludwig MD 717 [facility] [address] [place] [address] Referring Physician Nephrology 06/01/15 Lubna Baron MD [facility] [place] [address] Family Practice 07/25/15 03/03/17 Alex Sneed MD 420 [facility] 136 [place] [address] INTERNAL MEDICINE - ENDOCRINOLOGY, DIABETES & METABOLISM 07/25/15 Dave Fermin, RN Nurse Coordinator Nephrology 02/13/17 10/22/17 Mague Olsen PA-C [facility] [address] [place] [address] Assigned PCP 06/13/18 02/26/19 documented as of this encounter
--- OUTSIDE RECORDS SUMMARY | 2024-03-28 09:58 | XMS_ITS | Encounter Summary ---
Author Name Unknown Organization [place] Address [address] [facility] [place] [address] Care Team Providers Care Attending Radiologist Name Role Phone Lubna Baron MD Primary Care Provid er Klaudia Ludwig MD Unavailable + [phone] Klaudia Ludwig MD Unavailable + [phone] Lubna Baron MD Unavailable + [phone] Alex Sneed MD Unavailable [phone] [facility] Primary Care Provi kayy Dave Fermin RN Unavailable Keith Bond MD Primary Care Provider [phone] Mague Olsen PA-C Unavailable [phone] Mague Olsen PA-C Unavailable [phone] Encounter Details Date Type Department Care Team (Late st Contact Info) Description 09/25/2014 MyC Medical Advice P [place] Renal [address] [place] [address] Klaudia Ludwig MD [address] [place] [place] [address] [address] [place] [address] Social History Tobacco Use Types [...] on filedocumented in this encounter Care Teams Attending Radiologist Relationship Specialty Start Date End Date Lubna Baron MD [facility] [place] [address] PCP - General 05/10/08 01/03/[address] [address] PCP - General 05/21/16 09/22/17 Keith Bond MD [address] [address] PCP - General Family Practice 09/23/17 Mague Olsen PA-C [facility] [address] [address] PCP - Assigned PCP 06/13/18 01/25/19 Klaudia Ludwig MD [address] [place] [address] Nephrology 03/28/15 10/02/15 Klaudia Ludwig MD [address] [place] [address] [place] [address] Referring Physician Nephrology 06/01/15 Lubna Baron MD [place] [address] Family Practice 07/25/15 03/03/17 Alex Sneed MD [address] [place] [address] 136 [place] [address] INTERNAL MEDICINE - ENDOCRINOLOGY, DIABETES & METABOLISM 07/25/15 Dave Fermin, ADALGISA Nurse Coordinator Nephrology 02/13/17 10/22/17 Mague Olsen PA-C [facility] [address] [place] [address] Assigned PCP 06/13/18 02/26/19 documented as of this encounter
--- OUTSIDE RECORDS SUMMARY | 2024-03-28 09:58 | XMS_ITS | Encounter Summary ---
Author Name Unknown Organization [place] Address [address] [facility] [place] [address] Care Team Providers Care Publicity Writer Name Role Phone Lubna Baron MD Primary Care Provid er Klaudia Ludwig MD Unavailable + [phone] Klaudia Ludwig MD Unavailable + [phone] Lubna Baron MD Unavailable + [phone] Alex Sneed MD Unavailable [facility] Primary Care Provi kayy Dave Fermin RN Unavailable Keith Bond MD Primary Care Provider [phone] Mague Olsen PA-C Unavailable +[phone] Mague Olsen PA-C Unavailable +[phone] Reason for Visit * Reason Onset Date Comments Refill Request 07/31/2015 Encounter Details Date Type Department Care Team (Late st Contact Info) Description 07/31/2015 MyC Refill [facility] [address] [place], [place] [address] [place] [address] Klaudia Ludwig MD [address]17 [facility] [address] [place] [address] Refill Request Social History Tobacco Use Types Packs/Day Years [...] on filedocumented in this encounter Care Teams Publicity Writer Relationship Specialty Start Date End Date Lubna Baron MD [facility] [place] [address] PCP - General 05/10/08 01/03/[address] [address] PCP - General 05/21/16 09/22/17 Keith Bond MD [place] [address] [place] [address] PCP - General Family Practice 09/23/17 Mague Olsen PA-C [facility] [address] [facility] [address] [place] [address] PCP - Assigned PCP 06/13/18 01/25/19 Klaudia Ludwig MD 717 [facility] [address] [place] [address] Nephrology 03/28/15 10/02/15 Klaudia Ludwig MD 717 [facility] 193 [place] [address] Referring Physician Nephrology 06/01/15 Lubna Baron MD [facility] [place] [address] Family Practice 07/25/15 03/03/17 Alex Sneed MD [address] [facility] 136 [place] [address] INTERNAL MEDICINE - ENDOCRINOLOGY, DIABETES & METABOLISM 07/25/15 Dave Fermin, RN Nurse Coordinator Nephrology 02/13/17 10/22/17 Mague Olsen PA-C [facility] [address] [place] [address] Assigned PCP 06/13/18 02/26/19 documented as of this encounter
--- OUTSIDE RECORDS SUMMARY | 2024-03-28 09:58 | XMS_ITS | Encounter Summary ---
Author Name Unknown Organization [place] Address [address] [place] [address] Care Team Providers Care Legal Internship Name Role Phone Lubna Baron MD Primary Care Provid er Klaudia Ludwig MD Unavailable + [phone] Klaudia Ludwig MD Unavailable + [phone] Lubna Baron MD Unavailable + [phone] Alex Sneed MD Unavailable [facility] Primary Care Provi kayy Dave Fermin RN Unavailable Keith Bond MD Primary Care Provider [phone] Mague Olsen PA-C Unavailable +[phone] Mague Olsen PA-C Unavailable +[phone] Encounter Details Date Type Department Care Team (Late st Contact Info) Description 12/01/2014 MyC Medical Advice [facility] [address] [place] [address] Klaudia Ludwig MD [address] [place] [address] [address] [place] [address] Social History Tobacco Use Types [...] on filedocumented in this encounter Care Teams Legal Internship Relationship Specialty Start Date End Date Lubna Baron MD [facility] [address] PCP - General 05/10/08 01/03/[address] [address] PCP - General 05/21/16 09/22/17 Keith Bond MD [address] [address] PCP - General Family Practice 09/23/17 Mague Olsen PA-C [facility] [address] [address] PCP - Assigned PCP 06/13/18 01/25/19 Klaudia Ludwig MD [address] [place] [address] Nephrology 03/28/15 10/02/15 Klaudia Ludwig MD [address] [place] [address] [place] [address] Referring Physician Nephrology 06/01/15 Lubna Baron MD [facility] [place] [address] Family Practice 07/25/15 03/03/17 Alex Sneed MD [address] [place] [address] 136 [place] [address] INTERNAL MEDICINE - ENDOCRINOLOGY, DIABETES & METABOLISM 07/25/15 Dave Fermin, ADALGISA Nurse Coordinator Nephrology 02/13/17 10/22/17 Mague Olsen PA-C [facility] [address] [place] [address] Assigned PCP 06/13/18 02/26/19 documented as of this encounter
--- OUTSIDE RECORDS SUMMARY | 2024-03-28 09:58 | XMS_ITS | Encounter Summary ---
Author Name Unknown Organization [place] Address [address] [facility]. [address] Care Team Providers Care Pack Mule Worker Name Role Phone Klaudia Ludwig MD Unavailable [phone] Lubna Baron MD Unavailable + [phone] Alex Sneed MD Unavailable [facility] Primary Care Provi kayy Dave Fermin RN Unavailable Keith Bond MD Primary Care Provider [phone] Mague Olsen PA-C Unavailable +[phone] Mague Olsen PA-C Unavailable [phone] Encounter Details Date Type Department Care Team (Late st Contact Info) Description 02/07/2016 MyC Medical Advice Nephrology 2nd Floor, Clinic [address] [id number] Klaudia Ludwig MD [address] [place] [address] [address] [place] [address] Social History Tobacco Use Types [...] on filedocumented in this encounter Care Teams Pack Mule Worker Relationship Specialty Start Date End Date Clinic, [address] [address] PCP - General 05/21/16 09/22/17 Keith Bond MD [facility] [address] [place] [address] PCP - General Family Practice 09/23/17 Mague Olsen PA-C [facility] [address] [place] [address] PCP - Assigned PCP 06/13/18 01/25/19 Klaudia Ludwig MD 717 [facility] [address] [place], [place] [address] Referring Physician Nephrology 06/01/15 Lubna Baron MD [facility] [place] [address] Family Practice 07/25/15 03/03/17 Alex Sneed MD 420 [facility] 136 [place], [place] [address] INTERNAL MEDICINE - ENDOCRINOLOGY, DIABETES & METABOLISM 07/25/15 Dave Fermin, RN Nurse Coordinator Nephrology 02/13/17 10/22/17 Mague Olsen PA-C [facility] [address] [place] [address] Assigned PCP 06/13/18 02/26/19 documented as of this encounter
--- OUTSIDE RECORDS SUMMARY | 2024-03-28 09:58 | XMS_ITS | Encounter Summary ---
Author Name Unknown Organization [place] Address [address] [facility] [address] Care Team Providers Care Miniature Set Constructor Name Role Phone Klaudia Ludwig MD Unavailable [phone] Lubna Baron MD Unavailable + [phone] Alex Sneed MD Unavailable [facility] Primary Care Provi kayy Dave Fermin RN Unavailable Keith Bond MD Primary Care Provider [phone] Mague Olsen PA-C Unavailable [phone] Mague Olsen PA-C Unavailable [phone] Encounter Details Date Type Department Care Team (Late st Contact Info) Description 01/08/2016 MyC Medical Advice Weight Management [facility] Building 1st Floor, Clinic 1E [address] [facility] [place] [address] Alex Sneed MD 420 [facility] 136 [place] [address] Social History Tobacco Use Types Packs/Day [...] on filedocumented in this encounter Care Teams Miniature Set Constructor Relationship Specialty Start Date End Date Clinic, [address] [address] PCP - General 05/21/16 09/22/17 Keith Bond MD [facility] [address] [place] [address] PCP - General Family Practice 09/23/[address] O[address] PA-C [facility] [address] [place] [address] PCP - Assigned PCP 06/13/18 01/25/19 Klaudia Ludwig MD 717 [facility] [address] [place], [place] [address] Referring Physician Nephrology 06/01/15 Lubna Baron MD [facility] [place] [address] Family Practice 07/25/15 03/03/17 Alex Sneed MD 420 [facility] 136 [place], [place] [address] INTERNAL MEDICINE - ENDOCRINOLOGY, DIABETES & METABOLISM 07/25/15 Dave Fermin, RN Nurse Coordinator Nephrology 02/13/17 10/22/[address]-C [facility] [address] [place] [address] [place] [address] Assigned PCP 06/13/18 02/26/19 documented as of this encounter
--- OUTSIDE RECORDS SUMMARY | 2024-03-28 09:58 | XMS_ITS | Encounter Summary ---
Author Name Unknown Organization [place] Address [address] [facility] [place] [address] Care Team Providers Care Brim Presser Name Role Phone Lubna Baron MD Primary Care Provid er Klaudia Ludwig MD Unavailable + [phone] Klaudia Ludwig MD Unavailable + [phone] Lubna Baron MD Unavailable + [phone] Alex Sneed MD Unavailable [facility] Primary Care Provi kayy Dave Fermin RN Unavailable Keith Bond MD Primary Care Provider [phone] Mague Olsen PA-C Unavailable +[phone] Mague Olsen PA-C Unavailable [phone] Encounter Details Date Type Department Care Team (Late st Contact Info) Description 04/03/2015 MyC Medical Advice P [place] [facility] [address] [place] [address] Klaudia Ludwig MD [address] [place] [address] 1932 [place] [address] Social History Tobacco Use Types [...] on filedocumented in this encounter Care Teams Brim Presser Relationship Specialty Start Date End Date Lubna Baron MD [facility] [place] [address] PCP - General 05/10/08 01/03/[address] [address] PCP - General 05/21/16 09/22/17 Keith Bond MD [address] [address] PCP - General Family Practice 09/23/17 Mague Olsen PA-C [facility] [address] [address] PCP - Assigned PCP 06/13/18 01/25/19 Klaudia Ludwig MD [address] [place] [address] Nephrology 03/28/15 10/02/15 Klaudia Ludwig MD [address] [place] [address] [place] [address] Referring Physician Nephrology 06/01/15 Lubna Baron MD [facility] [address] Family Practice 07/25/15 03/03/17 Alex Sneed MD [address] [place] [address] 136 [place] [address] INTERNAL MEDICINE - ENDOCRINOLOGY, DIABETES & METABOLISM 07/25/15 Dave Fermin, ADALGISA Nurse Coordinator Nephrology 02/13/17 10/22/17 Mague Olsen PA-C [facility] [address] [place] [address] Assigned PCP 06/13/18 02/26/19 documented as of this encounter
--- OUTSIDE RECORDS SUMMARY | 2024-03-28 09:58 | XMS_ITS | Encounter Summary ---
Author Name Unknown Organization [place] Address [address] [facility] [place] [address] Care Team Providers Care Painter Barrel Name Role Phone Klaudia Ludwig MD Unavailable [phone] Lubna Baron MD Unavailable + [phone] Alex Sneed MD Unavailable [facility] Primary Care Provi kayy Dave Fermin RN Unavailable Keith Bond MD Primary Care Provider [phone] Mague Olsen PA-C Unavailable [phone] Mague Olsen PA-C Unavailable [phone] Encounter Details Date Type Department Care Team (Late st Contact Info) Description 04/22/2016 [facility] Nephrology Clinic [address] [address] Klaudia Ludwig MD [address] [place] [address] [address] [place] [address] Social History Tobacco Use Types [...] on filedocumented in this encounter Care Teams Painter Barrel Relationship Specialty Start Date End Date Clinic, [address] [address] PCP - General 05/21/16 09/22/17 Keith Bond MD [facility] [address] [place] [address] PCP - General Family Practice 09/23/17 Mague Olsen PA-C [facility] [address] [place] [address] PCP - Assigned PCP 06/13/18 01/25/19 Klaudia Ludwig MD 717 [facility] [address] [place], [place] [address] Referring Physician Nephrology 06/01/15 Lubna Baron MD [facility] [place] [address] Family Practice 07/25/15 03/03/17 Alex Sneed MD 420 [facility] 136 [place], [place] [address] INTERNAL MEDICINE - ENDOCRINOLOGY, DIABETES & METABOLISM 07/25/15 Dave Fermin, RN Nurse Coordinator Nephrology 02/13/17 10/22/17 Mague Olsen PA-C [facility] [address] [place] [address] Assigned PCP 06/13/18 02/26/19 documented as of this encounter
--- OUTSIDE RECORDS SUMMARY | 2024-03-28 09:58 | XMS_ITS | Encounter Summary ---
Author Name Unknown Organization [place] Address [address] [facility] [place] [address] Care Team Providers Care Process Safety Engineer Name Role Phone Klaudia Ludwig MD Unavailable [phone] Lubna Baron MD Unavailable + [phone] Alex Sneed MD Unavailable [facility] Primary Care Provi kayy Dave Fermin RN Unavailable Keith Bond MD Primary Care Provider [phone] Mague Olsen PA-C Unavailable [phone] Mague Olsen PA-C Unavailable [phone] Encounter Details Date Type Department Care Team (Late st Contact Info) Description 12/17/2016 MyC Medical Advice [facility] Social History Tobacco Use Types Packs/Day Years [...] on filedocumented in this encounter Care Teams Process Safety Engineer Relationship Specialty Start Date End Date [address] [address] PCP - General 05/21/16 09/22/17 Keith Bond MD [address] [address] PCP - General Family Practice 09/23/17 Mague Olsen PA-C [facility] [address] [place] [address] PCP - Assigned PCP 06/13/18 01/25/19 Klaudia Ludwig MD 717 [facility] [address] [place] [address] Referring Physician Nephrology 06/01/15 Lubna Baron MD [facility] [place] [address] Family Practice 07/25/15 03/03/17 Alex Sneed MD 420 [facility] [address] [place] [address] INTERNAL MEDICINE - ENDOCRINOLOGY, DIABETES & METABOLISM 07/25/15 Dave Fermin, RN Nurse Coordinator Nephrology 02/13/17 10/22/17 Mague Olsen PA-C [facility] [address] [place] [address] Assigned PCP 06/13/18 02/26/19 documented as of this encounter
--- OUTSIDE RECORDS SUMMARY | 2024-03-28 09:58 | XMS_ITS | Encounter Summary ---
Author Name Unknown Organization [place] Address [address] [facility] [place] [address] Care Team Providers Care Cloth Edge Singer Name Role Phone Klaudia Ludwig MD Unavailable [phone] Lubna Baron MD Unavailable + [phone] Alex Sneed MD Unavailable [facility] Primary Care Provi kayy Dave Fermin RN Unavailable Keith Bond MD Primary Care Provider [phone] Mague Olsen PA-C Unavailable +[phone] Mague Olsen PA-C Unavailable +[phone] Encounter Details Date Type Department Care Team (Late st Contact Info) Description 10/06/2016 MyC Medical Advice [facility] [place] Social History Tobacco Use Types Packs/Day Years [...] on filedocumented in this encounter Care Teams Cloth Edge Singer Relationship Specialty Start Date End Date [address] [address] PCP - General 05/21/16 09/22/17 Keith Bond MD [address] [address] PCP - General Family Practice 09/23/17 Mague Olsen PA-C [facility] [address] [place] [address] PCP - Assigned PCP 06/13/18 01/25/19 Klaudia Ludwig MD 717 [facility] [address] [place] [address] Referring Physician Nephrology 06/01/15 Lubna Baron MD [facility] [place] [address] Family Practice 07/25/15 03/03/17 Alex Sneed MD 420 [facility] 136 [place] [address] INTERNAL MEDICINE - ENDOCRINOLOGY, DIABETES & METABOLISM 07/25/15 Dave Fermin, RN Nurse Coordinator Nephrology 02/13/17 10/22/17 Mague Olsen PA-C [facility] [address] [place] [address] Assigned PCP 06/13/18 02/26/19 documented as of this encounter
--- OUTSIDE RECORDS SUMMARY | 2024-03-28 09:58 | XMS_ITS | Encounter Summary ---
Author Name Unknown Organization [place] Address [address] [facility] [place] [address] Care Team Providers Care Meat Pumper Name Role Phone Klaudia Ludwig MD Unavailable [phone] Lubna Baron MD Unavailable + [phone] Alex Sneed MD Unavailable [facility] Primary Care Provi kayy Dave Fermin RN Unavailable Keith Bond MD Primary Care Provider [phone] Mague Olsen PA-C Unavailable [phone] Mague Olsen PA-C Unavailable +[phone] Encounter Details Date Type Department Care Team (Late st Contact Info) Description 04/30/2016 [facility] Nephrology Clinic [address] [address] Klaudia Ludwig MD [address] [place] [address] [address] [place] [address] Social History Tobacco Use Types [...] on filedocumented in this encounter Care Teams Meat Pumper Relationship Specialty Start Date End Date Clinic, [address] [address] PCP - General 05/21/16 09/22/17 Keith Bond MD [facility] [address] [place] [address] PCP - General Family Practice 09/23/17 Mague Olsen PA-C [facility] [address] [place] [address] PCP - Assigned PCP 06/13/18 01/25/19 Klaudia Ludwig MD 717 [facility] [address] [place], [place] [address] Referring Physician Nephrology 06/01/15 Lubna Baron MD [place] [address] Family Practice 07/25/15 03/03/17 Alex Sneed MD 420 [facility] 136 [place], [place] [address] INTERNAL MEDICINE - ENDOCRINOLOGY, DIABETES & METABOLISM 07/25/15 Dave Fermin, RN Nurse Coordinator Nephrology 02/13/17 10/22/17 Mague Olsen PA-C [facility] [address] [place] [address] Assigned PCP 06/13/18 02/26/19 documented as of this encounter
--- OUTSIDE RECORDS SUMMARY | 2024-03-28 09:58 | XMS_ITS | Encounter Summary ---
Author Name Unknown Organization [place] Address [address] [facility] [place] [address] Care Team Providers Care Bar Assistant Name Role Phone Lubna Baron MD Primary Care Provid er Klaudia Ludwig MD Unavailable + [phone] Klaudia Ludwig MD Unavailable + [phone] Lubna Baron MD Unavailable + [phone] Alex Sneed MD Unavailable [phone] [facility] Primary Care Provi kayy Dave Fermin RN Unavailable Keith Bond MD Primary Care Provider [phone] Mague Olsen PA-C Unavailable [phone] Mague Olsen PA-C Unavailable [phone] Encounter Details Date Type Department Care Team (Late st Contact Info) Description 10/09/2014 MyC Medical Advice P [place] [facility] [address] [place] [address] Klaudia Ludwig MD [address] [place] [address] [address] [place] [address] Social History Tobacco Use Types [...] on filedocumented in this encounter Care Teams Bar Assistant Relationship Specialty Start Date End Date Lubna Baron MD [place] [address] PCP - General 05/10/08 01/03/[address] [address] PCP - General 05/21/16 09/22/17 Keith Bond MD [address] [address] PCP - General Family Practice 09/23/17 Mague Olsen PA-C [facility] [address] [address] PCP - Assigned PCP 06/13/18 01/25/19 Klaudia Ludwig MD [address] [place] [address] Nephrology 03/28/15 10/02/15 Klaudia Ludwig MD [address] [place] [address] [place] [address] Referring Physician Nephrology 06/01/[address] [facility] [place] [address] Family Practice 07/25/15 03/03/17 Alex Sneed MD [address] [place] [address] 136 [place] [address] INTERNAL MEDICINE - ENDOCRINOLOGY, DIABETES & METABOLISM 07/25/15 Dave Fermin, ADALGISA Nurse Coordinator Nephrology 02/13/17 10/22/17 Mague Olsen PA-C [facility] [address] [place] [address] Assigned PCP 06/13/18 02/26/19 documented as of this encounter
--- OUTSIDE RECORDS SUMMARY | 2024-03-28 09:58 | XMS_ITS | Encounter Summary ---
Author Name Unknown Organization [place] Address [address] [facility] [place] [address] Care Team Providers Care Golf Instructor Name Role Phone Lubna Baron MD Primary Care Provid er Klaudia Ludwig MD Unavailable + [phone] Klaudia Ludwig MD Unavailable + [phone] Lubna Baron MD Unavailable + [phone] Alex Sneed MD Unavailable [facility] Primary Care Provi kayy Dave Fermin RN Unavailable Keith Bond MD Primary Care Provider [phone] Mague Olsen PA-C Unavailable [phone] Mague Olsen PA-C Unavailable [phone] Encounter Details Date Type Department Care Team (Late st Contact Info) Description 06/26/2015 MyC Medical Advice P [place] [facility] [address] [place] [address] Klaudia Ludwig MD [address] [place] [address] [address] [place] [address] Social History Tobacco Use Types [...] on filedocumented in this encounter Care Teams Golf Instructor Relationship Specialty Start Date End Date Lubna Baron MD [facility] [place] [address] PCP - General 05/10/08 01/03/[address] [address] PCP - General 05/21/16 09/22/17 Keith Bond MD [address] [address] PCP - General Family Practice 09/23/17 Mague Olsen PA-C [facility] [address] [address] PCP - Assigned PCP 06/13/18 01/25/19 Klaudia Ludwig MD [address] [place] [address] Nephrology 03/28/15 10/02/15 Klaudia Ludwig MD [address] [place] [address] [place] [address] Referring Physician Nephrology 06/01/15 Lubna Baron MD [facility] [place] [address] Family Practice 07/25/15 03/03/17 Alex Sneed MD [address] [place] [address] 136 [place] [address] INTERNAL MEDICINE - ENDOCRINOLOGY, DIABETES & METABOLISM 07/25/15 Dave Fermin, ADALGISA Nurse Coordinator Nephrology 02/13/17 10/22/17 Mague Olsen PA-C [facility] [address] [place] [address] Assigned PCP 06/13/18 02/26/19 documented as of this encounter
--- OUTSIDE RECORDS SUMMARY | 2024-03-28 09:58 | XMS_ITS | Encounter Summary ---
Author Name Unknown Organization [place] Address [address] [place] [address] Care Team Providers Care Mounter Saxophones Name Role Phone Lubna Baron MD Primary Care Provid er Klaudia Ludwig MD Unavailable + [phone] Klaudia Ludwig MD Unavailable + [phone] Lubna Baron MD Unavailable + [phone] Alex Sneed MD Unavailable [facility] Primary Care Provi kayy Dave Fermin RN Unavailable Keith Bond MD Primary Care Provider [phone] Mague Olsen PA-C Unavailable [phone] Mague Olsen PA-C Unavailable [phone] Encounter Details Date Type Department Care Team (Late st Contact Info) Description 07/25/2014 MyC Medical Advice [facility] [address] [place] [address] Klaudia Ludwig MD [address] [place] [address] [address] [place] [address] Social History Tobacco Use Types [...] on filedocumented in this encounter Care Teams Mounter Saxophones Relationship Specialty Start Date End Date Lubna Baron MD [place] [address] PCP - General 05/10/08 01/03/[address] [address] PCP - General 05/21/16 09/22/17 Keith Bond MD [address] [address] PCP - General Family Practice 09/23/17 Mague Olsen PA-C [facility] [address] [address] PCP - Assigned PCP 06/13/18 01/25/19 Klaudia Ludwig MD [address] [place] [address] Nephrology 03/28/15 10/02/15 Klaudia Ludwig MD [address] [place] [address] [place] [address] Referring Physician Nephrology 06/01/15 Lubna Baron [place] [address] Family Practice 07/25/15 03/03/17 Alex Sneed MD [address] [place] [address] [address] [place] [address] INTERNAL MEDICINE - ENDOCRINOLOGY, DIABETES & METABOLISM 07/25/15 Dave Fermin, ADALGISA Nurse Coordinator Nephrology 02/13/17 10/22/17 Mague Olsen PA-C [facility] [address] [place] [address] Assigned PCP 06/13/18 02/26/19 documented as of this encounter
--- OUTSIDE RECORDS SUMMARY | 2024-03-28 09:58 | XMS_ITS | Encounter Summary ---
Author Name Unknown Organization [place] Address [address] [facility] [address] Care Team Providers Care X Ray Service Technician Name Role Phone Lubna Baron MD Primary Care Provid er Klaudia Ludwig MD Unavailable + [phone] Klaudia Ludwig MD Unavailable + [phone] Lubna Baron MD Unavailable + [phone] Alex Sneed MD Unavailable [phone] [facility] Primary Care Provi kayy Dave Fermin RN Unavailable Keith Bond MD Primary Care Provider [phone] Mague Olsen PA-C Unavailable [phone] Mague Olsen PA-C Unavailable [phone] Encounter Details Date Type Department Care Team (Late st Contact Info) Description 08/18/2013 MyC Medical Advice Initial Department [facility] Social History Tobacco Use Types Packs/Day Years [...] on filedocumented in this encounter Care Teams X Ray Service Technician Relationship Specialty Start Date End Date Lubna Baron MD [facility] [place] [address] PCP - General 05/10/08 01/03/[address] [address] PCP - General 05/21/16 09/22/17 Keith Bond MD [facility] [address] [place] [address] PCP - General Family Practice 09/23/17 Mague Olsen PA-C [facility] [address] [place] [address] PCP - Assigned PCP 06/13/18 01/25/19 Klaudia Ludwig MD [address] [facility] [address] [place] [address] Nephrology 03/28/15 10/02/15 Klaudia Ludwig MD [address] [facility] [address] [place] [address] Referring Physician Nephrology 06/01/15 Lubna Baron MD [facility] [place] [address] Family Practice 07/25/15 03/03/17 Aelx Sneed MD [address] [facility] [address] [place] [address] INTERNAL MEDICINE - ENDOCRINOLOGY, DIABETES & METABOLISM 07/25/15 Dave Fermin, RN Nurse Coordinator Nephrology 02/13/17 10/22/17 Mague Olsen PA-C [facility] [address] [facility] [address] [place] [address] Assigned PCP 06/13/18 02/26/19 documented as of this encounter
--- OUTSIDE RECORDS SUMMARY | 2024-03-28 09:59 | XMS_ITS | Clinical Summary ---
Author Name Unknown Organization [facility] Address [place], [place] [address] Care Team Providers Care Diesel Lube Tech Name Role Phone Leonel Veronica MD Primary Care Provider [phone] Allergies Active Allergy Reactions Criticality Noted Date Comments Obed Inhibitors Edema 08/07/2005 Amoxicillin Edema 12/11/2011 Naproxen Edema 08/06/2005 Cinacalcet Hives 05/31/2020 itching Sulfa (Sulfonamide Antibiotics) Hives 01/22 Medications Medication Sig Dispensed Refills Start Date End Date Status MEDICATION ORDER COMPOSERIndication s:Nonallopathic lesion of lumbar region, not elsewhere classified,Lumbago ,Nonallopathic lesion of thoracic region, not elsewhere classified patient is able to return to work as of 10/24/07 with no limitations. Patient has been instructed in proper body mechanics and given instructions for bending forward while cutting or other activities. 1 0 10/22/2007 Active darbepoetin angel in polysorbate (ARANESP) 60 mcg/0.3 mL syrg Inject 60 mcg subcutaneous. Active loratadine (CLARITIN) 10 mg tablet Take 10 mg by mouth. 02/08/2015 Acti ve pramipexole (MIRAPEX) 0.125 mg tablet Take 1-2 tablets as needed at bedtime 11/03/2017 Active EPINEPHrine (EPIPEN) 0.3 mg/0.3 mL injectionIndicatio ns:Urticaria Inject 0.3 mg intramuscular one time if needed for Allergic Reaction for up to 1 dose. 2 Each 03/10/2019 Active durable medical equipment (DME)Indications:S /P foot surgery, right SQUARED TOE POST OP SHOE, LARGE, REF: [phone] 1 Each 04/29/2022 Active carvediloL (COREG) 12.5 mg tablet Take 12.5 mg by mouth. 11/22/2023 Active acetaminophen (TYLENOL EXTRA STRGTH) 500 mg tablet 08/11/2023 Active dapsone 25 mg tablet Take 50 mg by mouth. 09/25/2023 09/24/2024 Acti ve chlorhexidine (PERIDEX) 0.12 % solution 06/02/2023 Active famotidine (PEPCID) 20 mg tablet Take 20 mg by mouth. 09/24/2023 Acti ve mycophenolate (CELLCEPT) 250 mg capsule Take 750 mg by mouth. 09/24/2023 Active tacrolimus (PROGRAF) 1 mg capsule Take by mouth. 11/25/2023 Active aspirin (ECOTRIN) 81 mg enteric coated tablet 09/25/2023 Active cyanocobalamin (VITAMIN B12) 1,000 mcg/mL injection Inject 1,000 mcg As Directed. 12/09/2023 Active ergocalciferol (VITAMIN D2; DRISDOL) 50,000 unit capsule Take 50,000 units by mouth. 12/22/2023 Active folic acid 1 mg tablet Take 1 mg by mouth. 12/01/2023 Activ e furosemide (LASIX) 40 mg tablet Take 1 Tablet by mouth once daily. 01/11/2024 Active letermovir 480 mg tab Take 480 mg by mouth. 12/22/2023 Active carvediloL (COREG) 12.5 mg tablet Take 18.75 mg by mouth. 12/16/2023 Active mycophenolate (CELLCEPT) 250 mg capsule Take 500 mg by mouth. 12/01/2023 Active predniSONE (DELTASONE) 5 mg tablet Take 5 mg by mouth. 12/14/2023 Activ e Simethicone (Gas-X) 62.5 mg strp Take 1 Tablet by mouth. 01/07/2024 Active tacrolimus (PROGRAF) 0.5 mg capsule Take 0.5 mg by mouth. 12/22/2023 Active Active Problems Problem Noted Date Diagnosed Date Pap smear for cervical cancer screening 03/24/20 Overview: 02/2024 NIL/HPV Negative Plan: HPV-based testing due in 5 years ESRD (end stage renal disease) 02/04/2024 B12 deficiency 01/20/2024 Hypervolemia 01/05/2024 Hypoxia 01/05/2024 COVID-19 12/22/2023 Nonrheumatic aortic valve stenosis 11/30/2023 A-V fistula 11/30/2023 Upper respiratory tract infection 11/17/2023 Delayed graft function of kidney 11/01/2023 Seroma of genitourinary syst em after genitourinary system procedure 11/01/2023 Bilateral lower extremity edema 10/20/2023 Hyperuricemia 10/20/2023 Metabolic acidosis 10/20/2023 Microalbuminuria 10/20/2023 Immunosuppressive management encounter following kidney transplant 09/28/2023 longterm current use of systemic steroids 09/28 Encounter for aftercare following kidney transpl ant 09/21/2023 Overview: DDKT 0 match, 5 mismatch, cPRA 46%, DSA Cw4 historic, current pending. KDPI 59%, CIT 12 hr 47 min WIT 26 min, single vessels, EBL 250cc, CMV donor + recip neg, EBV donor +, recip neg. High risk protocol, but with EBV recip neg, donor + reduced dose to 4mg/kg slightly off protocol and d/w surgery/nephrology/Pharm D. Dr. Jared Garnica surgeon. LENA on CPAP 08/25/2023 HTN (hypertension) 08/25/2023 PAD (peripheral artery disease) 08/25/2023 Renal angiomyolipoma 08/25/2023 Overview: L Nephrocalcinosis 08/25/2023 Overview: medullary, b/l robinson kidney Serum Valeria Mac virus (EBV) antibody negative 08/25/2023 Intertrigo 03/11/2023 Intertrigo labialis 02/03/2023 Acute pain of left knee 08/28/2021 Osteoarthritis of left knee 08/28/2021 Acute pain of right knee 08/28/2021 Conductive hearing loss, bilateral 08/13/2021 Chronic hearing loss, on hearing aids 12/26/2020 CGN (chronic glomerulonephritis) 12/26/2020 Anemia in stage 4 chronic kidney disease 018 Lumbago 10/18/2007 Nonallopathic lesion of cerv ical region, not elsewhere classified 01/15/2006 Nonallopathic lesion of thor acic region, not elsewhere classified 01/15/2006 Nonallopathic lesion of lumb ar region, not elsewhere classified 01/15/2006 Resolved Problems Problem Noted Date Diagnosed Date Resolved Date Dialysis patient M-W-F 12/26/202002/03 Encounters Date Type Department Care Team Description 03/24/2024 Telephone [facility] [address] [place] [address] Cesar Crum DPM Questions 03/24/2024 Travel 03/21/2024 Telephone [facility] [address] [address] Cesar Crum DPM Form (FMLA) 03/09/2024 8:45 AM CDT Preop Visit [address] [address] Leonel Veronica MD Preoperative Exam (03/28/24/Dr. Crum. Left Foot Bunion procedure ); Clinical Psychiatrist Exam 03/09/2024 Travel 03/02/2024 8:30 AM CDT Orders Only [address] [address] Lab, [facility] 03/02/2024 Travel 02/25/2024 Telephone [facility] [address] [place] [address] aCsa Garner MD Results (SLEEP STUDY RESULTS) 02/18/2024 Telephone [facility] [address] [place] [address] Cesar Crum DPM Surgery Scheduled 02/15/2024 1:00 PM CDT Nurse/Clinic Staff [place] [address] [place] [address] Device Check (HST Drop Off - [place] ) 02/14/2024 Travel 02/12/2024 1:30 PM CDT Nurse/Clinic Staff Only [address] [place] [address] Device Check (HST Bight Maker - [place] ) 02/12/2024 Procedure Only [address] [place] [address] Casa Garner MD Results (Home Sleep Test) 02/11/2024 Orders Only [facility] [address] [place] [address] Cesar Crum DPM <No scans attached> 02/11/2024 Travel 02/09/2024 Telephone [facility] [address] [place] [address] Cesar Crum DPM Follow Up 02/04/2024 9:10 AM CDT Office Visit [address] [place] [address] Leonel Veronica MD Medicare ANNUAL (subsequent) Visit (Left ear discomfort. ) 02/03/2024 3:30 PM CDT Office Visit [facility] [address] [place] [address] Casa Garner MD Sleep Consult 02/03/2024 8:30 AM CDT Orders Only [address] [place] [address] Lab, [facility] 02/03/2024 Travel 01/21/2024 11:20 AM WIND PROJECT MANAGER Ancillary Procedure [facility] [address] [place] [address] 01/21/2024 10:30 AM WIND PROJECT MANAGER Office Visit [facility] [address] [place] [address] Cesar Crum DPM Consult (Left bunion ) 01/21/2024 Travel 01/04/2024 11:57 AM WIND PROJECT MANAGER - 01/04/2024 3:07 PM WIND PROJECT MANAGER Emergency [facility] [address] [place] [address] Marixa Hussein MD Tran, Sarah Kathryn, PA Hypoxia (Primary Dx); Heart failure, unspecified HF chronicity, unspecified heart failure type (HC); COVID Discharge Disposition: Short Term/PPS Hosp 01/04/2024 Travel 12/30/2023 Telephone [facility] [address] [place] [address] Casa Garner MD Appointment Request 12/29/2023 Telephone [facility] [address] [place] [address] Casa Garner MD Sleep Follow-up from Last 3 Months Immunizations Name Administration Dates Next Due COVID-19 vaccine (Moderna 100mcg/0.5mL) PF, MDV 12/21/2020 COVID-19 vaccine (Moderna 50mcg/0.5mL) 12YO+ BIVALENT PF, MDV 08/29/2022 COVID-19 vaccine (Pfizer-Bio NTech 30mcg/0.3mL) 12YO+ YASMINE-SUCROSE PF, MDV 06/20/2022 Hep B (Hepatitis B (Adult) Recombinant Adjuvanted) 12/04/2021 HepA-HepB (Twinrix) 01/20/2014, 3,05/18/2013,2012 Influenza RIV4 (Age 18+ Year s) PRESERV FREE 09/02/2023 Influenza Virus, Unspecified 08/30/2015,08/23/20 14,08/22/2012 Influenza, IIV3 (Age 6-35 mos) 08/28/2015 Influenza, IIV3 (Age >=3 years) 10/07/2016,09/14 Influenza, IIV4 08/23/2021,08/08/2020,09/09/2013 Pneumococcal Poly,23-Valent (Pneumovax) 04/24/2018,05/17/2012 Pneumococcal conj 13-Valent (Prevnar 13) 01/20/2014 Td (Age >=7 Years) 05/14/2004 Td, Preservative Free (age > = 7 Years) 05/14/2004,12/05/1992 Tdap 06/20/2022,05/17/2012 Family History Medical History Relation Name Comments Cancer-breast Sister Relation Name Status Comments Sister Social History Tobacco Use Types Packs/Day Years Used Date Smoking Tobacco: Never Smokeless Tobacco: Never Tobacco Cessation:Counseling Given: Yes Alcohol Use Standard Drinks/Week Comments No 0 (1 standard drink = 0.6 oz pur e alcohol) PHQ-2 Answer Date Recorded PHQ-2 TOTAL SCORE 0 02/04/2024 Social Connections Answer Date Recorded Frequency of Communication with Friends and Fami ly Not on file 03/16/2023 Financial Resource Strain Answer Date R ecorded Difficulty of Paying Living Expenses 3 03/14/2022 Difficulty of Paying Living Expenses Not on file 03/14/2022 Food Insecurity Answer Date Recorded Worried About Running Out of Food in the Last Ye ar 1 03/14/2022 Transportation Needs Answer Date Record ed Lack of Transportation (Medical) 1 03/14/2022 Housing Stability Answer Date Recorded Unable to Pay for Housing in the Last Year 1 03/14/2022 Sex and Gender Information Value Date Recorded Sex Assigned at Not on file Gender Identity Not on file Sexual Orientation Not on file Obstetrics History Last Filed Vital Signs Vital Sign Reading Time Taken Comments Blood Pressure 140/68 03/09/2024 8:19 AM CDT Pulse 56 03/09/2024 8:19 AM CDT Temperature 36.4 ??C (97.5 ??F) 01/04/2024 12:[address] Respiratory Rate 20 01/04/2024 12:05 PM WIND PROJECT MANAGER Oxygen Saturation 97% 03/09/2024 8:19 AM CDT Inhaled Oxygen Concentration - - Weight 86.2 kg (190 lb) 03/09/2024 8:19 AM CDT Height 164.5 cm (5' 4.75) 02/04/2024 9:27 AM CD T Body Mass Index 31.86 02/04/2024 9:27 AM CDT Plan of Treatment Upcoming Encounters Date Type Department Care Team (Late st Contact Info) Description 03/31/2024 1:00 PM CDT Office Visit [facility] [address] [place] [address] Cesar Crum DPM [address] [place] [address] 04/14/2024 9:15 AM CDT Office Visit [facility] [address] [place] [address] Cesar Crum DPM [address] [place] [address] 05/12/2024 9:15 AM CDT Office Visit [facility] [address] [place] [address] Cesar Crum DPM [address] [place] [address] Health Maintenance Due Date Last Done Comments Zoster (shingles) series for age 50+ (1 of 2) 1988 COVID-19 vaccine series (2022- season) 2024 12/22/2023, 08/29/2022, 06/20/2022, Additional history exists Influenza for age 50-64 07/24/2024 09/02/20, 08/23/2021, 08/08/2020, Additional history exists Mammogram for age 45-75 08/26/2024 08/26/20, 03/12/2022, 01/17/2021 BMI (ht and wt on same day) for age 18+ 02/03/2025 02/04/2024, 02/03/2024, 01/21/2022, Additional history exists Depression screening for age 12+ 02/03/2025 02/04/2024, 06/20/2022, 01/11/2021, Additional history exists Lipids for age 45-75 06/20/2027 06/20/2022 Pap test for age 21-65 03/09/2029 , 03/09/2024, 01/02/2021 Tetanus booster 06/20/2032 06/20/2022, 04/24, 05/14/2004, Additional history exists Colonoscopy through age 75 07/31/203207/31, 07/31/2022, 07/31/2022 Pneumococcal series for age 6-64 (4 of 4 - PPSV23 or PCV20) 2034 04/24/2018, 01/20/2014, 05/17/2012 HIV for age 15-65 Completed 12/23/2016 (Co mpleted outside of [facility]) Hepatitis C screening for ag e 18-79 Completed 01/20/2018 (Completed outsid e of [facility]) Tdap Completed 06/20/2022, 05/17/2012 Medical Devices Implanted Type Area Chucking And Sawing Machine Operator Device Identifier Shelf Expiration Date Model / Serial / Lot 3.0mm Headless Cannulated Screw Implanted:Qty: 1 on 03/17/2022 by Cesar Crum DPM at [facility] Right: Foot [employer] [id number] / / N/A T8, Full Thread Screw Implanted:Qty: 1 on 03/17/2022 by Cesar Crum DPM at [facility] Right: Foot [employer] [id number] / / N/A T8 Full Thread Screw Implanted:Qty: 3 on 03/17/2022 by Cesar Crum DPM at [facility] Right: Foot [employer] [id number] / / N/A Curved Plate 5 Holes, Right Implanted:Qty: 1 on 03/17/2022 by Cesar Crum DPM at [facility] Right: Foot [employer] [id number] / / N/A 0.062 K-Wire Double Ended Implanted:Qty: 2 on 03/17/2022 by Cesar Crum DPM at [facility] Right: Foot / / N/A Procedures Procedure Name Priority Date/Time Associated Diagnosis Comments SPORT SHOE SPIKE ASSEMBLER THIN PREP PAP SCREEN IMAGED Routine 03/09/2024 9:22 AM CDT Screening for cervical cancer HPV THIN PREP Routine 03/09/2024 9:22 AM CDT Screening for cervical cancer RED CELL MORPHOLOGY Routine 03/02/2024 8 :12 AM CDT -donor kidney transplant Encounter for aftercare following kidney transplant longterm (current) use of systemic steroids Immunosuppressive management encounter following kidney transplant PLATELET ESTIMATE Routine 03/02/2024 8:1 2 AM CDT -donor kidney transplant Encounter for aftercare following kidney transplant longterm (current) use of systemic steroids Immunosuppressive management encounter following kidney transplant MANUAL DIFFERENTIAL Routine 03/02/2024 8 :12 AM CDT -donor kidney transplant Encounter for aftercare following kidney transplant longterm (current) use of systemic steroids Immunosuppressive management encounter following kidney transplant CBC WITH AUTO DIFFERENTIAL Routine 03/02/2024 8:12 AM CDT -donor kidney transplant Encounter for aftercare following kidney transplant longterm (current) use of systemic steroids Immunosuppressive management encounter following kidney transplant CBC WITH AUTO DIFFERENTIAL Routine 03/02/2024 8:12 AM CDT -donor kidney transplant Encounter for aftercare following kidney transplant terminal operator (current) use of systemic steroids Immunosuppressive management encounter following kidney transplant BASIC METABOLIC PANEL Routine 03/02/2024 8:12 AM CDT -donor kidney transplant Encounter for aftercare following kidney transplant longterm (current) use of systemic steroids Immunosuppressive management encounter following kidney transplant HOME SLEEP TEST TYPE 3 PORTABLE Routine 02/12/2024 11:59 PM CDT LENA (obstructive sleep apnea) RED CELL MORPHOLOGY Routine 02/03/2024 8 :17 AM CDT -donor kidney transplant Encounter for aftercare following kidney transplant terminal operator (current) use of systemic steroids Immunosuppressive management encounter following kidney transplant PLATELET ESTIMATE Routine 02/03/2024 8:1 7 AM CDT -donor kidney transplant Encounter for aftercare following kidney transplant terminal operator (current) use of systemic steroids Immunosuppressive management encounter following kidney transplant MANUAL DIFFERENTIAL Routine 02/03/2024 8 :17 AM CDT -donor kidney transplant Encounter for aftercare following kidney transplant longterm (current) use of systemic steroids Immunosuppressive management encounter following kidney transplant CBC WITH AUTO DIFFERENTIAL Routine 02/03/2024 8:17 AM CDT -donor kidney transplant Encounter for aftercare following kidney transplant terminal operator (current) use of systemic steroids Immunosuppressive management encounter following kidney transplant CBC WITH AUTO DIFFERENTIAL Routine 02/03/2024 8:17 AM CDT -donor kidney transplant Encounter for aftercare following kidney transplant longterm (current) use of systemic steroids Immunosuppressive management encounter following kidney transplant BASIC METABOLIC PANEL Routine 02/03/2024 8:17 AM CDT -donor kidney transplant Encounter for aftercare following kidney transplant terminal operator (current) use of systemic steroids Immunosuppressive management encounter following kidney transplant XR FOOT 3 VIEWS LEFT Routine 01/21/2024 11:22 AM WIND PROJECT MANAGER Bunion, left BLOOD CULTURE STAT 01/04/2024 1:14 PM WIND PROJECT MANAGER XR CHEST 1 VIEW PORTABLE STAT 01/04/2024 12:52 PM WIND PROJECT MANAGER INFLUENZA A/B PCR STAT 01/04/2024 12: 43 PM WIND PROJECT MANAGER COVID-19 MOLECULAR STAT 01/04/2024 12 :43 PM WIND PROJECT MANAGER RED CELL MORPHOLOGY STAT 01/04/2024 1 2:33 PM WIND PROJECT MANAGER PLATELET ESTIMATE STAT 01/04/2024 12: 33 PM WIND PROJECT MANAGER MANUAL DIFFERENTIAL STAT 01/04/2024 1 2:33 PM WIND PROJECT MANAGER D-DIMER,QUANTITATIVE STAT 01/04/2024 12:33 PM WIND PROJECT MANAGER BLOOD GAS,VENOUS STAT 01/04/2024 12:3 3 PM WIND PROJECT MANAGER PRO-BNP STAT 01/04/2024 12:33 PM WIND PROJECT MANAGER CBC WITH AUTO DIFFERENTIAL STAT 01/04/2024 12:33 PM WIND PROJECT MANAGER LACTATE VENOUS STAT 01/04/2024 12:33 PM WIND PROJECT MANAGER BLOOD CULTURE STAT 01/04/2024 12:33 PM WIND PROJECT MANAGER PROTIME-INR STAT 01/04/2024 12:33 PM WIND PROJECT MANAGER PROCALCITONIN STAT 01/04/2024 12:33 PM WIND PROJECT MANAGER CBC WITH AUTO DIFFERENTIAL STAT 01/04/2024 12:33 PM WIND PROJECT MANAGER COMP METABOLIC PANEL STAT 01/04/2024 12:33 PM WIND PROJECT MANAGER XR MAMMO BILAT SCREENING Routine 08/26/2023 2:23 PM CDT Visit for screening mammogram COLONOSCOPY SCREENING Routine 07/31/2022 9:41 AM CDT Screening for colon cancer LIPID PANEL Routine 06/20/2022 4:03 PM CDT Lipid screening from Last 3 Months or Most Recently Relevant to Health Maintenance Results * SPORT SHOE SPIKE ASSEMBLER THIN PREP PAP SCREEN IMAGED (03/09/2024 9:22 AM CDT) Case Report Gynecologic Cytology Report ? Case: [id number] ? Authorizing Provider: ??Leonel Veronica MD ?Collected: ? 03/09/2024 0922 ? Ordering Location: ? [facility] [place] ?Received: ?03/09/2024 0922 ? Clinic ? First Screen: ?Sara Pennington ? Specimen: ?SPORT SHOE SPIKE ASSEMBLER ThinPrep Vial Screening, Cervical/Vaginal ? 03/23/2024 9:58 AM CDT [facility] INTERPRETATION/ RESULT NEGATIVE FOR INTRAEPITHELIAL LESION OR MALIGNANCY (NIL) (none) 03/23/2024 9:58 AM CDT [facility] [employer] [facility] IMEN ADEQUACY Satisfactory for evaluation No endocervical component seen 03/23/2024 9:58 AM CDT [facility] HPV REQUEST HPV and PAP 03/23/2024 9:58 AM CDT [facility] [employer] [facility] Date of LMP hysterectomy 15 years ago due to large fibroid 03/23/2024 9:58 AM CDT [facility] [employer] [facility] Last Pap Date 01/02/21 03/23/2024 9:58 AM CDT [facility] Last Pap Result NIL 9:58 AM CDT [facility] Abnormal Pap or [place] Bx in last 5 years No 03/23/2024 9:58 AM CDT [facility] Menstrual Status Postmenopausal 03/23/2024 9:58 AM CDT [facility] [place] Bx Done Today No 03/23/2024 9:58 AM CDT [facility] Additional Information None given 03/23/2024 9:58 AM CDT [facility] Comment: Cytology is screened at [facility] - [address], [place] [address] and [facility] - [address] [place] [address] and [facility] - [address] [place] [address] Interpreted at [facility] - [address], [place] [address] Automated Review Successful 03/23/2024 9:58 AM CDT [facility] Comment:Specimen processed s uccessfully by automated cytology manager device, ThinPrep Imaging System, [employer] ANCILLARY TESTING SPORT SHOE SPIKE ASSEMBLER HPV Ordered, Please see separate report 03/23/2024 9:58 AM CDT [facility] Note The pap test is a screening technique, not a diagnostic procedure. It is used primarily to screen for squamous cancers and precursor lesions. Published studies have shown that it is subject to both false negative and false positive results. The pap test should not be used as the sole means to diagnose or exclude pre-malignant and malignant lesions. 03/23/2024 9:58 AM CDT [facility] Other (Cervical/Vagina l) Non-Blood / Unknown 03/09/2024 9:22 AM CDT 03/09/2024 9:22 AM CDT Leonel Veronica MD PATHOLOGY/CYTOLOGY [facility] [address] [place] [address], * HPV HIGH RISK (03/09/2024 9:22 AM CDT) TYPE 16 Negative Negative 03/15/2024 11:03 AM CDT [facility] TYPE 18 Negative Negative 03/15/2024 11:03 AM CDT [facility] OTHER HIGH RISK TYPES Negative Negative 03/15/2024 11:03 AM CDT [facility] Other (Cervical/Vagina l) Non-Blood / Unknown 03/09/2024 9:22 AM CDT 03/11/2024 7:49 AM CDT [facility] - 03/15/2024 11:03 AM CDT HPV types 16, 18, 31, 33, 35, 39, 45, 51, 52, 56, 58, 59, 66 and 68 DNA were undetectable or below the pre-set threshold. Methodology: Christina Shannen 4800 HPV Test Leonel Veronica MD MICROBIOLOGY [facility] [address] [place] [address], * (ABNORMAL) CBC WITH AUTO DIFFERENTIAL (03/02/2024 8:12 AM CDT) Only the most recent of3 resultswithin the time period is included. WHITE BLOOD COUNT 6.3 4.5 - 11.0 thou/cu mm 03/02/2024 9:15 AM [facility] RED BLOOD COUNT 3.33(L) 4.00 - 5.20 mil/cu mm 03/02/2024 9:15 AM [facility] HEMOGLOBIN 8.8(L) 12.0 - 16.0 g/dL 03/02/2024 9:15 AM [facility] HEMATOCRIT 31.1(L) 33.0 - 51.0 % 03/02/2024 9:15 AM [facility] MCV 93 80 - 100 fL 03/02/2024 9:15 AM [facility] MCH 26.4 26.0 - 34.0 pg 03/02/2024 9:15 AM CDT [facility] MCHC 28.3(L) 32.0 - 36.0 g/dL 03/02/2024 9:15 AM CDT [facility] RDW 15.8(H) 11.5 - 15.5 % 03/02/2024 9:15 AM CDT [facility] PLATELET COUNT 173 140 - 440 thou/cu mm 03/02/2024 9:15 AM CDT [facility] MPV 10.3 6.5 - 11.0 fL 03/02/2024 9:15 AM CDT [facility] Blood BLOOD SPECIMEN / Unknown Venipuncture / Unknown 03/02/2024 8:12 AM CDT 03/02/2024 8:[address] [facility] - 03/02/2024 9:15 AM CDT The lab will provide the testing results for CBC W/Diff \T\ BMP Every Month to the outside provider Erich Samano MD. at fax number [phone] for that provider to inform and arrange appropriate follow up with the patient. Leonel Veronica MD HEMATOLOGY [facility] [address] [place] [address] * (ABNORMAL) RED CELL MORPHOLOGY (03/02/2024 8:12 AM CDT) Only the most recent of3 resultswithin the time period is included. Pathologist Darshan DALECYTLUIS ALBERTO Rivas 03/02/2024 9:15 AM CDT [facility] RBC COMMENT Present(A ) RBC morphology appears normal, RBC morphology within normal limits for newborns. 03/02/2024 9:15 AM CDT [facility] Blood BLOOD SPECIMEN / Unknown Venipuncture / Unknown 03/02/2024 8:12 AM CDT 03/02/2024 8:13 AM CDT Narrative [facility] - 03/02/2024 9:15 AM CDT The lab will provide the testing results for CBC W/Diff \T\ BMP Every Month to the outside provider Erich Samano MD. at fax number [phone] for that provider to inform and arrange appropriate follow up with the patient. Leonel Veronica MD HEMATOLOGY Performing Organization Address [facility] Co de Phone Number [facility] [address] [place] [address] * PLATELET ESTIMATE (03/02/2024 8:12 AM CDT) Only the most recent of3 resultswithin the time period is included. PLATELET ESTIMATE Adequate Adequate, No estimate 03/02/2024 9:15 AM CDT [facility] Blood BLOOD SPECIMEN / Unknown Venipuncture / Unknown 03/02/2024 8:12 AM CDT 03/02/2024 8:[address] [facility]AT[facility] - 03/02/2024 9:15 AM CDT The lab will provide the testing results for CBC W/Diff \T\ BMP Every Month to the outside provider Erich Samano MD. at fax number [phone] for that provider to inform and arrange appropriate follow up with the patient. Leonel Veronica MD HEMATOLOGY Performing Organization Address [facility] Co de Phone Number [facility] [address] [place] [phone] * MANUAL DIFFERENTIAL (03/02/2024 8:12 AM CDT) Only the most recent of3 resultswithin the time period is included. % NEUTROPHILS 75.0 % 03/02/2024 9:15 AM CDT [facility] % LYMPHOCYTES 15.0 % 03/02/2024 9:15 AM CDT [facility] % MONOCYTES 9.0 % 03/02/2024 9:15 AM CDT [facility] % EOSINOPHILS 1.0 % 03/02/2024 9:15 AM [facility] % BASOPHILS 0.0 % 03/02/2024 9:15 AM [facility] NEUTROPHILS ABSOLUTE 4.7 1.7 - 7.0 thou/cu mm 03/02/2024 9:15 AM [facility] LYMPHOCYTES ABSOLUTE 0.9 0.9 - 2.9 thou/cu mm 03/02/2024 9:15 AM [facility] MONOCYTES ABSOLUTE 0.6 <0.9 thou/cu mm 03/02/2024 9:15 AM [facility] EOSINOPHILS ABSOLUTE 0.1 <0.5 thou/cu mm 03/02/2024 9:15 AM [facility] BASOPHILS ABSOLUTE 0.0 <0.3 thou/cu mm 03/02/2024 9:15 AM [facility] Blood BLOOD SPECIMEN / Unknown Venipuncture / Unknown 03/02/2024 8:12 AM CDT 03/02/2024 8:13 AM [facility] LABORATORY - 03/02/2024 9:15 AM T The lab will provide the testing results for CBC W/Diff \T\ BMP Every Month to the outside provider Erich Samano MD. at fax number [phone] for that provider to inform and arrange appropriate follow up with the patient. Leonel Veronica MD HEMATOLOGY [facility] [address] [place] [address] * (ABNORMAL) BASIC METABOLIC PANEL (03/02/2024 8:12 AM CDT) Only the most recent of2 resultswithin the time period is included. SODIUM 140 136 - 145 mmol/L 03/02/2024 8:57 AM [facility] POTASSIUM 4.4 3.5 - 5.1 mmol/L 03/02/2024 8:57 AM [facility] CHLORIDE 108(H) 98 - 107 mmol/L 03/02/2024 8:57 AM [facility] CO2,TOTAL 21(L) 22 - 29 mmol/L 03/02/2024 8:57 AM [facility] ANION GAP 11 5 - 18 03/02/2024 8:57 AM [facility] GLUCOSE 99 70 - 99 mg/dL 03/02/2024 8:57 AM [facility] CALCIUM 10.8(H) 8.6 - 10.0 mg/dL 03/02/2024 8:57 AM [facility] BUN 46(H) 6 - 20 mg/dL 03/02/2024 8:57 AM [facility] CREATININE 1.73(H) 0.50 - 0.90 mg/dL 03/02/2024 8:57 AM [facility] BUN/CREAT RATIO 27(H) 10 - 20 8:57 AM [facility] eGFR 35(L) >90 mL/min/1.7 3m2 03/02/2024 8:57 AM [facility] Comment:As of 2022, eG FR is calculated by the CKD-EPI creatinine equation without race adjustment. ??eGFR can be influenced by muscle mass, exercise, and diet. ??The reported eGFR is an estimation only and is only applicable if the renal function is stable. Blood BLOOD SPECIMEN / Unknown Venipuncture / Unknown 03/02/2024 8:12 AM CDT 03/02/2024 8:13 AM CDT Leonel Veronica MD CHEMISTRY [facility] [address] [place] [address] * HOME SLEEP TEST TYPE 3 PORTABLE (02/12/2024 11:59 PM CDT) Narrative Casa Garner MD - 02/12/2024 11:59 PM CDT Casa Garner MD ? 02/15/2024 ??5:03 PM Home Sleep Test Name: ??Sissy Sy Location: ??[facility] Study notes: This is a single night home sleep apnea test. The study is performed in the context of a clinical suspicion for sleep apnea. Sissy Sy ( 1970) is studied using a T3 Device using nasal pressure transducer, thoracoabdominal respiratory impedance plethysmography belts, pulse oximetry, snore microphone and actigraphy for body position. ??The study is scored by a RPSGT and interpreted by a Diplomate of the [place] [employer]. ??An [id number] review of the data has been performed by the interpreting physician. Scored following the most current version of the AASM Manual for the Scoring of Sleep and Associated Events. ?? Respiratory Event Index (MITCHELL) ??Oxygen Desaturation Index (ANGELA) REI4% ??3.9 ??ODI4%: ??3.8 Supine MITCHELL: 9.1 ??ODI3%: ??3.8 Lateral MITCHELL: 3 ??Julio Saturation 81 % ?? Time Below 88% 5.4 ??minutes ?? Weight: Wt Readings from Last 1 Encounters: 02/04/24 84.4 kg (186 lb) Other data: Recording Duration: 600.0 minutes Time in Bed: ??517.9 minutes Estimated sleep efficiency [%]: 97 % Oximeter Quality: 99.0 % Flow Quality: 99.0 % RIP Quality: 100.0 % Supine time: 72.7 minutes Average SpO2: 92.0 % Pulse Average: 58.8 bpm Additional Comments: None IMPRESSION: Excessive Daytime Sleepiness (780.54, G47.10) - No Evidence of Obstructive Sleep Apnea RECOMMENDATIONS: - This is considered a negative home sleep study. ??There were a few episodes of hypoxemia- mostly associated with supine position. - A formal polysomnogram should be considered given a high false negative rate to home sleep testing. - However, if there is low clinical suspicion for obstructive sleep apnea, a negative home sleep test can be diagnostic. - Follow-up with a provider to discuss results is recommended. - Patients should be advised to avoid critical tasks, such as driving, whenever drowsy. - Patients should try to achieve at least 7-8 hours of sleep on a consistent basis. - The MITCHELL is a surrogate for AHI. ??For reimbursement and/or prior authorization purposes, it would be appropriate to list the MITCHELL as an AHI when the latter is accepted, but not the former. Casa Garner M.D. Diplomate, Board of Sleep Medicine Recording Information Recording Date: 02/12/2024 ??Analysis Start Time: 10:28 PM Recording Tags: ?? Analysis Stop Time: 7:06 AM Device Type: T3S ??Analysis Duration (TRT): 8h 37m ?? Est. Total Sleep Time: 8h 6m Position and Analysis Time Duration Percentage Supine (in TST): 72.7 m 14.9 % Non-Supine (in TST): 413.9 m 85.1 % Upright (in TRT): 31.3 m 6.1 % Movement (in TST): 14.2 m 2.9 % Invalid Data (Excluded): 0 m 0 % Respiratory Indices Index ?? Total ??Supine ??Non-supine Count Apneas + Hypopneas (AH): 3.9 /h 9.1 /h 3 /h 32 Apneas: 1.5 /h 1.7 /h 1.4 /h 12 Obstructive (OA): 1 /h 1.7 /h 0.9 /h 8 Mixed (MA): 0 /h 0 /h 0 /h 0 Central (CA): 0.5 /h 0 /h 0.6 /h 4 Hypopneas: ??2.5 /h 7.4 /h 1.6 /h 20 Respiration Rate (per m): 15.5 /m 15.2 /m 15.6 /m ?? Percentage of Sleep Duration Snore: 8.9 % 16.4 % 7.6 % 43.5 m Flow Limitation: 0 % 0 % 0 % 0 m Average Snore Volume 67.7 dB Percent of time greater than 80dB: Percent of 12.9 % Oxygen Saturation (SpO2) Total Supine ?Non-supine Oxygen Desaturation Index (ANGELA): 3.8 /h ??8.3 /h 3 /h Average SpO2: 92 % ??91.3 % 92.1 % Minimum SpO2: 81 % ??85 % 81 % SpO2 Duration < 90% 2 % (9.8m) 5.8 % 1.3 % SpO2 Duration ? 88% 1.1 % (5.4m) 3.4 % 0.7 % Pulse in TST ?? Quality ?? Average: 58.8 bpm Oximeter: 99 % Maximum: 79 bpm Nasal Cannula: 99 % Minimum: 53 bpm Abdomen RIP: 100 % Duration < 40 bpm: 0 m Thorax RIP: 100 % Duration > 100 bpm: 0 m ? Casa Garner MD SLEEP CENTER * XR FOOT 3 VIEWS LEFT (01/21/2024 11:22 AM WIND PROJECT MANAGER) Anatomical Region Laterality Modality FEET, FOOT L Computed Radiogr aphy Narrative 01/22/2024 6:34 AM WIND PROJECT MANAGER INDICATION: Bunion left foot. TECHNIQUE: Three weightbearing views of the left foot. COMPARISON: 11/26/2023. FINDINGS: Previous bunionectomy and well healed osteotomy distal 1st metatarsal. Persistent prominent hallux valgus with arthropathy 1st MTP joint. No screw loosening in the metatarsal or proximal phalanx. Heterotopic bone infra medial to the joint unchanged. Lateral deviation of the left 3rd toe at the 3rd MTP joint. Severe chronic midfoot arthropathy with mid arch depression, heel spurs and peripheral vascular calcifications similar to the previous. Dictated by Carlos Ta MD @ 01/21/2024 11:55:15 AM Signed by: Carlos Ta MD @01/21/2024 11:55:15 AM (Electronic Signature) Cesar Crum DPM GENERAL IMAGING * BLOOD CULTURE X2 (01/04/2024 1:14 PM WIND PROJECT MANAGER) Only the most recent of2 resultswithin the time period is included. CULTURE No Growth. 01/10/2024 7:11 AM WIND PROJECT MANAGER [facility] Blood BLOOD SPECIMEN / Unknown Butterfly / Unknown 01/04/2024 1:14 PM WIND PROJECT MANAGER 01/04/2024 2:36 PM WIND PROJECT MANAGER Marixa Hussein MD MICROBIOL OGY [facility] [address] [place] [address] * XR CHEST 1 VIEW PORTABLE (01/04/2024 12:52 PM WIND PROJECT MANAGER) Anatomical Region Laterality Modality HEART, THORAX, CHEST Digital Rad iography Impressions 01/07/2024 6:40 AM WIND PROJECT MANAGER Severely abnormal chest with large bilateral airspace densities predominating at the lung bases may be infectious or possibly pulmonary edema. Recommend correlation with chest CT when the patient`s condition will tolerate. Dictated by Carlos Ta MD @ 01/04/2024 4:23:33 PM Narrative 01/07/2024 6:40 AM WIND PROJECT MANAGER INDICATION: Shortness of breath. TECHNIQUE: Single portable upright chest. FINDINGS: Diffuse bilateral airspace infiltrates predominating at the lung bases but more prominent on the right. Cardiac enlargement with obscuration of the borders. Pleural effusions may also be present. Marixa Hussein MD GENERAL I MAGING * (ABNORMAL) COVID-19 MOLECULAR (01/04/2024 12:43 PM WIND PROJECT MANAGER) Pathologist [facility] COVID 19 [place] MOLECULAR Detected(A) Not detected 01/04/2024 1:13 PM WIND PROJECT MANAGER [facility] TESTING LABORATORY [facility] 01/04/2024 1:13 PM WIND PROJECT MANAGER [facility] Comment:Specimen submitted t o [facility] for testing. Other SPECIMEN FROM NASOPHARYNGEAL STRUCTURE / Unknown Non-Blood / Unknown 01/04/2024 12:43 PM WIND PROJECT MANAGER 01/04/2024 12:51 PM WIND PROJECT MANAGER Narrative [facility] - 01/04/2024 1:13 PM WIND PROJECT MANAGER This test has been authorized by FDA under an Emergency Use Authorization (EUA). This test is only authorized for the duration of time the declaration that circumstances exist justifying the authorization of the emergency use of in vitro diagnostic tests for detection of SARS-CoV-2 virus and/or diagnosis of COVID-19 infection under section 564(b)(1) of the Act, 21 U.S.C. 360bbb-3(b) (1), unless the authorization is terminated or revoked sooner. Marixa Hussein MD MICROBIOL OGY [facility] [address] [place] [address] * INFLUENZA A/B PCR (01/04/2024 12:43 PM WIND PROJECT MANAGER) Pathologist [facility] INFLUENZA A PCR NOT Detected 01/04/2024 1:13 PM WIND PROJECT MANAGER [facility] INFLUENZA B PCR NOT Detected 01/04/2024 1:13 PM WIND PROJECT MANAGER [facility] Other SPECIMEN FROM NASOPHARYNGEAL STRUCTURE / Unknown Non-Blood / Unknown 01/04/2024 12:43 PM WIND PROJECT MANAGER 01/04/2024 12:51 PM WIND PROJECT MANAGER Marixa Hussein MD MICROBIOL OGY [facility] [address] [place] [address] * LACTATE VENOUS (01/04/2024 12:33 PM WIND PROJECT MANAGER) [facility] LACTATE,VENOUS 0.7 0.5 - 2.0 mmol/L 01/04/2024 1:12 PM WIND PROJECT MANAGER [facility] Blood VENOUS BLOOD SPECIMEN / Unknown Butterfly / Unknown 01/04/2024 12:33 PM WIND PROJECT MANAGER 01/04/2024 12:48 PM WIND PROJECT MANAGER Marixa Hussein MD CHEMISTRY [facility] [address] [place] [address] * PROCALCITONIN (01/04/2024 12:33 PM WIND PROJECT MANAGER) Pathologist [facility] PROCALCITONIN 0.20 ng/ml 01/04/2024 1:24 PM WIND PROJECT MANAGER [facility] Blood VENOUS BLOOD SPECIMEN / Unknown Butterfly / Unknown 01/04/2024 12:33 PM WIND PROJECT MANAGER 01/04/2024 12:48 PM WIND PROJECT MANAGER Narrative [facility] - 01/04/2024 1:24 PM WIND PROJECT MANAGER Procalcitonin for initial assessment of Lower Respiratory Tract Infection: Results Interpretation <0.10 ng/mL Antibiotic therapy strongly discoraged. ??Indicates absent of bacterial infection. * 0.10 - 0.25 ng/mL Antibiotic therapy discouraged. ??Bacterial infection unlikely. * 0.26 - 0.50 ng/mL Antibiotic therapy encouraged. ??Bacterial infection possible. >0.50 ng/mL Antibiotic therapy strongly encouraged. ??Suggestive of presence of bacterial infection. *Antibiotic therapy should be considered regardless of PCT result if the patient is clinically unstable, is at high risk for adverse outcome, has strong evidence of bacterial pathogen, or the clinical context indicates antibiotic therapy is warranted. ??If antibiotics are withheld, reassess if symptoms persist/worsen and/or repeat PCT measurement within 6-24 hours. ? In order to assess treatment success and to support a decision to discontinue antibiotic therapy, follow up samples should be tested once every 1-2 days, based upon physician discretion taking into account patient's evolution and progress. Procalcitonin for initial assessment of severe sepsis risk: Results Interpretation <0.5 ng/ml A PCT level below 0.5 ng/ml on the first day of ICU admission is associated with a low risk for progression to severe sepsis and/or septic shock. > 2.0 ng/mL A PCT level above 2.0 ng/mL on the first day of ICU admission is associated with a high risk for progression to severe sepsis and/or septic shock. Note: Concentrations < 0.5 ng/mL do not exclude an infection, on account of localized infections (without systemic signs) which can be associated with such low concentrations, or a systemic infection in its initial stages(< 6 hours). Furthermore, increased procalcitonin can occur without infection. PCT concentrations between 0.5 and 2.0 ng/mL should be interpreted taking into account the patient's history. It is recommended to retest PCT within 6-24 hours if any concentrations < 2 ng/mL are obtained. Marixa Hussein MD SEND OUTS [address] [address] * (ABNORMAL) BLOOD GAS,VENOUS (01/04/2024 12:33 PM WIND PROJECT MANAGER) PH, VENOUS 7.31(L) 7.32 - 7.43 01/04/2024 1:04 PM [facility] PCO2, VENOUS 43 41 - 51 mmHg 01/04/2024 1:04 PM [facility] PO2, VENOUS 34(L) 35 - 40 mmHg 01/04/2024 1:04 PM [facility] HCO3,VENOUS 22 22 - 29 mmol/L 01/04/2024 1:04 PM [facility] BASE EXCESS, VENOUS, POCT -4.5(L) -2.0 - 3.0 01/04/2024 1:04 PM [facility] O2 SATURATION, VENOUS 55(L) 70 - 75 % 01/04/2024 1:04 PM [facility] PATIENT TEMPERATURE 37.0 Degrees C 01/04/2024 1:04 PM [facility] Blood VENOUS BLOOD SPECIMEN / Unknown Butterfly / Unknown 01/04/2024 12:33 PM WIND PROJECT MANAGER 01/04/2024 1:01 PM WIND PROJECT MANAGER Marixa Hussein MD CHEMISTRY [facility] [address] [place], [place] [phone] * (ABNORMAL) PROTIME-INR (01/04/2024 12:33 PM WIND PROJECT MANAGER) INR 1.1 <1.3 01/04/2024 1:04 PM [facility] PROTIME 12.6(H) 10.3 - 12.3 sec 01/04/2024 1:04 PM [facility] Blood VENOUS BLOOD SPECIMEN / Unknown Butterfly / Unknown 01/04/2024 12:33 PM WIND PROJECT MANAGER 01/04/2024 12:48 PM WIND PROJECT MANAGER Narrative [facility] - 01/04/2024 1:04 PM WIND PROJECT MANAGER ?Therapeutic Range 2.0-3.0 for most anticoagulated patients 2.5-3.5 or 4.0 for high risk patients The INR is only used for patients on stable oral anticoagulant therapy. It makes no significant contribution to the diagnosis or treatment of patients whose Protime is prolonged for other reasons. INR results are increased when heparin levels exceed 1.0 U/mL, which corresponds to an aPTT >125 seconds if the patient is on UFH. Marixa Hussein MD HEMATOLOG Y Performing Organization Address [facility] Co de Phone Number [facility] [address] [place] [address] * (ABNORMAL) D-DIMER,QUANTITATIVE (01/04/2024 12:33 PM WIND PROJECT MANAGER) D-DIMER,QUANTI TATIVE 2.18(H) <0.49 FEU mcg/mL FEU mcg/mL 01/04/2024 1:04 PM WIND PROJECT MANAGER [facility] D-DIMER INTERP Abnormal(A ) 01/04/2024 1:04 PM [facility] Blood VENOUS BLOOD SPECIMEN / Unknown Butterfly / Unknown 01/04/2024 12:33 PM WIND PROJECT MANAGER 01/04/2024 12:[address] WIND PROJECT MANAGER [facility] - 01/04/2024 1:04 PM WIND PROJECT MANAGER The cut off value for exclusion of Deep Vein Thrombosis and / or Pulmonary Embolism is 0.50 FEU mcg/mL For patients greater than 50 years of age the upper limit is age dependent and was calculated with the formula: ?? (PATIENT AGE x 0.01) FEU mcg/mL = Upper limit of normal range Marixa Hussein MD HEMATOLOG Y Performing Organization Address [facility] Co de Phone Number [facility] [address] [place] [address] * (ABNORMAL) PRO-BNP (01/04/2024 12:33 PM WIND PROJECT MANAGER) PRO-BNP 30,520(H) <125 pg/mL 01/04/2024 1:41 PM [facility] Blood VENOUS BLOOD SPECIMEN / Unknown Butterfly / Unknown 01/04/2024 12:33 PM WIND PROJECT MANAGER 01/04/2024 12:48 PM WIND PROJECT MANAGER Narrative [facility] - 01/04/2024 1:41 PM WIND PROJECT MANAGER The following cut-points have been suggested for the use of proBNP for the diagnostic evaluation of heart failure (HF) in patient with acute dyspnea. Patients with eGFR >= 60 Diagnosis (rule in CHF) ? <50 Years Old ?450 pg/mL 50 - 75 Years Old ?900 pg/mL >75 Years Old ? 1800 pg/mL Exclusion (rule out CHF) Age Independent ?300 pg/mL A cutoff of 1200 pg/mL for patients with an eGFR <60 yields a diagnostic sensitivity of 89% and specificity of 72% for acute congestive heart failure. ? Marixa Hussein MD SEND OUTS [facility] [address] [place] [address] * (ABNORMAL) COMP METABOLIC PANEL (01/04/2024 12:33 PM WIND PROJECT MANAGER) SODIUM 141 136 - 145 mmol/L 01/04/2024 1:21 PM [facility] POTASSIUM 5.0 3.5 - 5.1 mmol/L 01/04/2024 1:21 PM [facility] CHLORIDE 109(H) 98 - 107 mmol/L 01/04/2024 1:21 PM [facility] CO2,TOTAL 20(L) 22 - 29 mmol/L 01/04/2024 1:21 PM [facility] ANION GAP 12 5 - 18 01/04/2024 1:21 PM [facility] GLUCOSE 98 70 - 99 mg/dL 01/04/2024 1:21 PM [facility] CALCIUM 10.5(H) 8.6 - 10.0 mg/dL 01/04/2024 1:21 PM [facility] BUN 27(H) 6 - 20 mg/dL 01/04/2024 1:21 PM [facility] CREATININE 1.86(H) 0.50 - 0.90 mg/dL 01/04/2024 1:21 PM [facility] BUN/CREAT RATIO 15 10 - 20 1:21 PM [facility] eGFR 32(L) >90 mL/min/1.7 3m2 01/04/2024 1:21 PM [facility] Comment:As of 2022, eG FR is calculated by the CKD-EPI creatinine equation without race adjustment. ??eGFR can be influenced by muscle mass, exercise, and diet. ??The reported eGFR is an estimation only and is only applicable if the renal function is stable. ALBUMIN 4.1 4.0 - 4.9 g/dL 01/04/2024 1:21 PM [facility] PROTEIN,TOTAL 6.1 6.0 - 8.0 g/dL 01/04/2024 1:21 PM [facility] BILIRUBIN,TOTAL 0.5 0.0 - 1.2 mg/dL 01/04/2024 1:21 PM [facility] ALK PHOSPHATASE 92 35 - 104 IU/L 01/04/2024 1:21 PM [facility] ALT (SGPT) 7(L) 10 - 35 IU/L 01/04/2024 1:21 PM [facility] AST (SGOT) 10 10 - 35 IU/L 01/04/2024 1:21 PM [facility] Blood VENOUS BLOOD SPECIMEN / Unknown Butterfly / Unknown 01/04/2024 12:33 PM WIND PROJECT MANAGER 01/04/2024 12:48 PM WIND PROJECT MANAGER Marixa Hussein MD CHEMISTRY [facility] [address] [place], [place] [id number] * XR MAMMO BILAT SCREENING (08/26/2023 2:23 PM CDT) Anatomical Region Laterality Modality BREASTS, Breast Left, Breast Right Bilateral Mammography Impressions 08/27/2023 6:45 AM CDT ??There is no radiographic evidence for malignancy. ??Recommend annual mammograms. MAMMOGRAM ASSESSMENT: ??ACR 2 Benign PATIENTS: You will also receive a letter with your examination results in an easy to read format. ??If you have questions about your results, please contact your referring provider. Narrative 08/27/2023 6:45 AM CDT For Patients: As a result of the Century Cures Act, medical imaging exams and procedure reports are released immediately into your electronic medical record. You may view this report before your referring provider. If you have questions, please contact your health care provider. XR MAMMO BILAT SCREENING [[id number]] CLINICAL HISTORY: ??This is an asymptomatic 53 y.o. patient. INDICATION FOR EXAM: Mammogram Screening. TECHNIQUE: CC & MLO views were obtained. ??This study was evaluated with the assistance of Computer-Aided Detection. COMPARISON FILMS: Yes 03/12/22 ? FINDINGS: ??The breasts have scattered areas of fibroglandular density. ??No suspicious masses or microcalcifications. ??There are benign appearing calcifications.. Leonel Veronica MD MAMMO * COLONOSCOPY (07/31/2022 9:53 AM CDT) 07/31/2022 9:53 AM CDT Narrative Transcriptions Ryder Noble MD - 07/31/2022 11:18 AM CDT Patient Name: Sissy Sy Procedure Date: 07/31/2022 Gender: Female Date of : 1970 Admit Type: Outpatient Procedure: Colonoscopy Proceduralist: Ryder Noble MD , Sara Beth (Nurse), Rachelle Issa RN (Nurse) Referring MD: Leoenl Veronica Indications/Pre-Op Diagnosis: Screening for colorectal malignant neoplasm, This is the patient's first colonoscopy Medications: Fentanyl 50 micrograms IV, Midazolam 1 mgIV, The level of sedation administered wasmoderate Procedure Description: The patient had risks, benefits and alternatives explained to andgave informed consent. The patient had a stable cardiopulmonary status and judged an adequate candidate for conscious sedation. The Colonoscope was passed through the anus and advanced to thececum, identified by appendiceal orifice and ileocecal valve. Thecolonoscopy was performed without difficulty. The patient tolerated the procedure well. The quality of the bowel preparation was good. The ileocecal valve, appendiceal orifice, and rectum were photographed. Complications: No immediate complications. Estimated Blood Loss & Specimen: Estimated blood loss: none. Specimen collected - None Findings: The perianal and digital rectal examinations were normal. The entire examined colon appeared normal. Impressions/Post-Op Diagnosis: - The entire examined colon is normal. - No specimens collected. Recommendation: - Patient has a contact number available for emergencies. The signsand symptoms of potential delayed complications were discussed with the patient. Return to normal activities tomorrow. Written discharge instructions were provided to the patient. - Resume previous diet. - Continue present medications. - Repeat colonoscopy in 10 years for screening purposes. Moderate Sedation: A time out was performed before the procedure. Moderate (conscious) sedation was administered by the endoscopy nurse and supervised bythe endoscopist. The following parameters were monitored: oxygensaturation, heart rate, blood pressure, EKG, CO2, respiratory rate, adequacy of pulmonary ventilation and reponse to care. Please refer to the patient's medical record flowsheets and nursing notes for moderate sedation details. Total physician intraservice time was 24 minutes. Ryder Noble MD 07/31/2022 11:18:34 AM This report has been signed electronically. Note Initiated On: 07/31/2022 9:53 AM Procedure Code(s): --- Professional --- 37483, Colonoscopy, flexible; diagnostic, including collection of specimen(s) bybrushing or washing, when performed (separateprocedure) Diagnosis Code(s): --- Professional --- Z12.11, Encounter for screening formalignant neoplasm of colon CPT copyright 2020 [employer]. All rights reserved. The codes documented in this report are preliminary and upon rack pusher reviewmay be revised to meet current compliance requirements. Scope In: 10:43:59 AM Scope Withdrawal Time 0 hours 8 minutes 18 seconds Scope Out: 11:06:15 AM Ryder Noble MD PROCEDURE ORD * LIPID PANEL (06/20/2022 4:03 PM CDT) CHOLESTEROL,TOTAL 190 100 - 199 mg/dL 06/20/2022 4:32 PM [facility] TRIGLYCERIDES 113 <150 mg/dL 06/20/2022 4:32 PM [facility] HDL CHOLESTEROL 47 >40 mg/dL 4:32 PM [facility] NON-HDL CHOLESTEROL 143 <145 mg/dl 06/20/2022 4:32 PM [facility] CHOL/HDL RATIO 4.04 <4.50 06/20/2022 4:32 PM [facility] LDL CHOLESTEROL 120 <=130 mg/dL 06/20/2022 4:32 PM [facility] VLDL CHOLESTEROL 23 <=30 mg/dL 06/20/2022 4:32 PM CDT [facility] PROVIDER ORDERED STATUS RANDOM 06/20/2022 4:32 PM CDT [facility] Blood BLOOD SPECIMEN / Unknown Venipuncture / Unknown 06/20/2022 4:03 PM CDT 06/20/2022 4:04 PM CDT Leonel Veronica MD CHEMISTRY [facility] [address] [place] [address] from Last 3 Months or Most Recently Relevant to Health Maintenance Advance Directives * Full Code (Latest Code Status on File) Date Activated Date Inactivated Comments 03/17/2022 11:44 AM 03/17/2022 8:11 PM Question Answer Comments Code Status Discussion: Reviewed Preferences * Full Code Date Activated Date Inactivated Comments 08/07/2005 8:13 AM 08/07/2005 10:24 PM Care Teams Diesel Lube Tech Relationship Specialty Start Date End Date Leonel Veronica MD [address] [place] [address] [place] [address] PCP - General Family Practice 01/11/21
--- OUTSIDE RECORDS SUMMARY | 2024-03-28 09:59 | XMS_ITS | Clinical Summary ---
Author Name Unknown Organization [facility] Facility Address [address] [place] [address] Care Team Providers Care Squilgeer Name Role Phone Unavailable Primary Care Provider Unavailabl e Social History Tobacco Use Types Packs/Day Years Used Date Smoking Tobacco: Never Assessed Sex and Gender Information Value Date Recorded Sex Assigned at Not on file Gender Identity Not on file Sexual Orientation Not on file Plan of Treatment Health Maintenance Due Date Last Done Comments Breast Cancer Screening 1970 Colorectal Cancer Screening: Annual FOBT 2018 Colorectal Cancer Screening: Colonoscopy 2018 Colorectal Cancer Screening: Sigmoidoscopy 2018 Influenza Vaccine (Season Ended) 2024 08/08/2020, 10/07/2016, 08/30/2015, Additional history exists Pneumococcal Vaccine: Pediat rics (0 to 5 Years) and At-Risk Patients (6 to 64 Years) (4 of 4 - PPSV23 or PCV20) 2034 04/24/2018, 01/20/2014, 05/17/2012 Hepatitis B Vaccine Completed 01/20/2014, 06/17/2013, 05/18/2013, Additional history exists [address] [id number]
--- OUTSIDE RECORDS SUMMARY | 2024-03-28 09:59 | XMS_ITS | Encounter Summary ---
Author Name Unknown Organization [facility] Address [address] [place] [address] Care Team Providers Care Room Server Name Role Phone Lubna Baron MD Primary Care Provid er Klaudia Ludwig MD Unavailable [phone] Klaudia Ludwig MD Unavailable [phone] Lubna Baron MD Unavailable [phone] Alex Sneed MD Unavailable [phone] [facility] Primary Care Provi kayy Dave Fermin RN Unavailable Keith Bond MD Primary Care Provider [phone] Mague Olsen PA-C Unavailable [phone] Mague Olsen PA-C Unavailable [phone] Encounter Details Date Type Department Care Team (Late st Contact Info) Description 06/21/2013 [facility] Medical Advice Nephrology 2nd Floor, [facility] [address] [id number] Klaudia Ludwig MD [address] [place] [address] [address] [place], [place] [id number] Social History Tobacco Use Types Packs/Day Years [...] on filedocumented in this encounter Care Teams Room Server Relationship Specialty Start Date End Date Lubna Baron MD [place] [address] PCP - General 05/10/08 01/03/[address] [address] PCP - General 05/21/16 09/22/17 Keith Bond MD [address] [address] PCP - General Family Practice 09/23/17 Mague Olsen PA-C [facility] [address] [address] PCP - Assigned PCP 06/13/18 01/25/19 Klaudia Ludwig MD [address] [place] [address] Nephrology 03/28/15 10/02/15 Klaudia Ludwig MD [address] [place] [address] Referring Physician Nephrology 06/01/15 Lubna Baron MD [facility] [place] [address] Family Practice 07/25/15 03/03/17 Alex Sneed MD [address] [place] [address] [address] [place] [address] INTERNAL MEDICINE - ENDOCRINOLOGY, DIABETES & METABOLISM 07/25/15 Dave Fermin, RN Nurse Coordinator Nephrology 02/13/17 10/22/17 Mague Olsen PA-C [facility] [address] [place] [address] Assigned PCP 06/13/18 02/26/19 documented as of this encounter
[2024-03-28 10:20] VITALS: BP 127/64; PULSE 54; RESP 16; TEMP 36.4; O2SAT 96; BMI 33.5
[2024-03-28] MEDS: LACTATED RINGERS 1000 ML 1,000 ML 100 ML IV (10:40)
[2024-03-28] MEDS: SODIUM CHLORIDE 0.9 % (FLUSH) 10 ML SYRINGE IVF (10:40)
--- NOTE | 2024-03-28 10:45 | XR_ITS ---
Patient: GUICHO NORIEGA Facility:?[facility] Patient ID:?[id number] Site Patient ID:?[id number]. Site :?[id number] Study:?XRay-Extremity Left FOOT 2V-03/28/2024 4:03:48 PM Ordering Physician:NATANAEL Final Report: INDICATION: Left 1st MTP joint fusion and hammertoe repair TECHNIQUE: Left 1st MTP joint fusion and hammertoe repair performed by Dr. Crum. One C-arm spot image was obtained. Fluoroscopy time was 0.13 seconds. COMPARISON: None. FINDINGS: C-arm fluoroscopy for left 1st MTP joint fusion and hammertoe repair. IMPRESSION: C-arm fluoroscopy for left 1st MTP joint fusion and hammertoe repair. Dictated by Severiano Pearl MD @ 03/29/2024 9:12:47 AM Signed by:?Severiano Pearl MD @03/29/2024 9:12:47 AM (Electronic Signature)
--- NOTE | 2024-03-28 12:04 | W.ANESCHARGE ---
Anesthesia Charges Start Date/Time Anesthesia Start Date: 03/28/24 Anesthesia Start Time: 13:12 Stop Date/Time Anesthesia Stop Date: 03/28/24 Anesthesia Stop Time: 16:03
[2024-03-28] MEDS: CEFAZOLIN 2 GM INJ IVP (13:20)
[2024-03-28] MEDS: BUPIVACAINE 0.25% 30 ML INJECTION ×2 (13:40→13:50)
[2024-03-28 16:00] VITALS: BP 145/69; PULSE 60; RESP 16; TEMP 36.4; O2SAT 97
--- NOTE | 2024-03-28 16:03 | W.ANESCHARGE ---
Anesthesia Charges Start Date/Time Anesthesia Start Date: 03/28/24 Anesthesia Start Time: 13:12 Stop Date/Time Anesthesia Stop Date: 03/28/24 Anesthesia Stop Time: 16:03
[2024-03-28 16:15] VITALS: BP 153/67; PULSE 56; RESP 16; O2SAT 95
[2024-03-28 16:30] VITALS: BP 157/83; PULSE 55; RESP 16; O2SAT 96
--- NOTE | 2024-03-28 16:51 | W.PODPROC_ITS ---
Date of Procedure: 03/28/24 Surgeon: Cesar Crum DPM Pre-op Diagnosis: 1. Recurrent Hallux valgus with bunion left 2. Metatarsalgia 2nd metatarsal left 3. Metatarsalgia 3rd metatarsal left 4. Hammertoe correction 3rd digit left Post-op Diagnosis: 1. Recurrent Hallux valgus with bunion left 2. Metatarsalgia 2nd metatarsal left 3. Metatarsalgia 3rd metatarsal left 4. Hammertoe correction 3rd digit left Type of Procedure: 1. First MPJ fusion left foot 2. Partial 2nd metatarsal head resection left foot 3. Partial 3rd metatarsal head resection left foot 4. Hammertoe correction 3rd digit left foot 5. Hardware removal left foot Indications: Patient seen in clinic for ongoing pain in her left foot. She has elected surgical correction. I reviewed the procedure, recovery, expectation potential complications. These include but are not limited to: Poor wound healing, wound infection, under correction, over correction, nonunion, malunion, delayed union, hardware irritation or failure, nerve injury, complex regional pain syndrome, deep venous thrombosis, pulmonary embolism and possible . She understands risks written consent was obtained. Site was marked. Procedure Description: Patient brought the operating room placed supine position on operating table at that time IV sedation was initiated local anesthetic injected into the left foot. Patient was prepped and draped in a sterile fashion. Standard time-out protocol followed. Left foot was exsanguinated the tourniquet inflated. Dorsomedial curvilinear incision was made over the 1st metatarsophalangeal joint. Incision was carried down through skin subcutaneous tissues. A linear capsular incision was made the capsule is reflected away from the 1st metatarsal head proximal phalangeal base. The screw in the 1st metatarsal head was removed without difficulty. Guide pin was placed in the 1st metatarsal head and a 18 mm Reamer was used. Cartilage and subchondral bone was removed. Guide pin was removed. We attempted to remove the screw from the proximal phalanx but were unable to do so. Was left in place. Combination of a curette osteotome and drill bit were used to remove the cartilage and subchondral bone from the proximal phalangeal base. The base was fenestrated with drill and fish-scaled with osteotome. Wound was thoroughly irrigated normal sterile saline. Simulating weight-bearing the proximal phalanx was positioned optimally on the 1st metatarsal head and a K-wire was used as temporary fixation. C-arm confirmed excellent position. Six hole dorsal plate plate was then placed. 3.0 mm locking screws x3 placed distal and 2 were placed proximal. An additional nonlocking 3.0 mm screw was placed proximal. Sagittal saw and rotary bur were used to remodel the 1st metatarsal head. C-arm confirmed excellent correction. There was excessive bleeding with the tourniquet inflated and the stent was released. Upon releasing the tourniquet bleeding ceased. Joint capsule was repaired with 3-0 Vicryl. Subcutaneous tissues reapproximated with 4-0 Monocryl and skin closed with 4-0 Prolene. Linear incision was made dorsally between the 2nd and 3rd metatarsal heads. Incision was carried down through skin subcutaneous tissues. Blunt dissection was taken down to the 2nd metatarsal phalangeal joint where linear capsular incision was made. Capsular tissues reflected away from the 2nd metatarsal head. Sagittal saw was then used to resect the distal 2/3 of the metatarsal head. After removal the plantar flare was reduced with a hand rasp. Wound was irrigated normal sterile saline. C-arm confirmed excellent level resection. We then bluntly dissected over to the 3rd metatarsal where a linear incision was made through the metatarsophalangeal joint. Capsular tissues are for the 3rd metatarsal head. Sagittal saw was then used to resect the distal 2/3 the metatarsal head. At the removal the plantar flare was reduced with a hand rasp. Wound was irrigated with normal sterile saline. This incision was then closed with 4-0 Monocryl and 4-0 Prolene. Semi elliptical incision was made over the PIPJ 3rd toe. Skin wedge removed. Transverse incision made through the extensor tendon and joint capsule. Medial and lateral collateral ligaments released. Sagittal saw was used to remove the head of the proximal phalanx and base of the middle phalanx. 0.045 smooth K- wire was introduced into the base of the middle phalanx driven out the tip of the toe. Fusion site was held tightly together and K-wire drilled retrogradely back into the proximal phalanx. C-arm confirmed position. K-wire was bent cut and capped. Wound was irrigated normal sterile saline. The extensor tendon was repaired with 4-0 Vicryl. Skin was closed with 4-0 Prolene. Sterile dressing was then applied. Well-padded cam boot was applied. She was transferred from OR to PACU vital signs stable vascular status intact to the left foot. She will be discharged per same-day protocol. She is given oxycodone for pain. She is heel weight-bearing with crutch assistance. She will follow-up in 3 days. Both written and verbal postop instructions given. She will start aspirin therapy tomorrow. Anesthesia: MAC and local Hemostasis: ankle Estimated blood loss (mL): 60 Implants: Arthrex 1st MPJ fusion plate x1, 3.0 mm locking screws x5, 3 mm nonlocking screw x1, 0.054 smooth K-wire x1 Specimens: none sent Disposition: same day
== END 2024-03-28 16:54 | disposition home or self-care (01) ==
PROVIDERS: PCP Family Medicine; Visit Provider Podiatrist
PROC: (CPT 28740; principal; 2024-03-28 10:45)
PROC: (CPT 28285; 2024-03-28 10:45)
DX: M20.12 Hallux valgus (acquired), left foot (principal); M21.612 Bunion of left foot; M20.42 Other hammer toe(s) (acquired), left foot; M77.42 Metatarsalgia, left foot
CPT/HCPCS: 28750; 28285; 28112 ×2; 01480; 73620; A4580; C1713; J0665; J0690; J2250; J2405; J2704; J3010; J3490; J7120; Q4125